=== PATIENT | male | born 1965 | race Caucasian/White ===

== ENCOUNTER 2021-12-30 08:22 | Emergency (ER) | payer OTHER, SELFPAY ==
--- NOTE | ~2021-12-30 | XR_ITS ---
EXAMINATION: XR chest 2V DATE: 12/30/2021 10:23 INDICATION: Shortness of breath. TECHNIQUE: Frontal and lateral views of the chest were obtained on 3 radiographs. COMPARISON: Chest CT 04/15/2018 FINDINGS: The chest demonstrates clear lungs without pneumonia, pleural effusion, or pneumothorax. Th e heart size is normal. IMPRESSION: 1. No acute cardiopulmonary disease. Reviewed, dictated and finalized at location A.
--- NOTE | ~2021-12-30 | CT_ITS ---
EXAMINATION: CT brain wo con DATE: 12/30/2021 10:32 INDICATION: Headache. TECHNIQUE: Computed tomography (CT) of the head was performed without intravenous contrast. The mA wa s adjusted according to patient size. Iterative reconstruction technique was employed. The dose-lengt h product was 681.00 mGy-cm. COMPARISON: Head CT 04/15/2018 FINDINGS: There are scattered areas of low attenuation in the cerebral white matter. There is no intr acranial hemorrhage, acute infarction, or abnormal intracranial mass lesion. The ventricles are medardo l in size. There is mild mucosal thickening in the paranasal sinuses. The mastoid air cells are medardo l. The orbits are normal. IMPRESSION: 1. Stable mild nonspecific cerebral white matter disease, which likely represents chronic small vesse l ischemic disease. Reviewed, dictated and finalized at location A. IMPRESSION: 1. Stable mild nonspecific cerebral white matter disease, which likely represen ts chronic small vessel ischemic disease.
[2021-12-30 08:40] VITALS: BP 175/105; PULSE 84; RESP 18; TEMP 36.5; O2SAT 94
[2021-12-30 08:47] LABS: Glucose Point of Care 92 mg/dl (65-105)
--- NOTE | 2021-12-30 09:14 | ECG_ITS ---
Measurements Intervals [place] Rate: 46 P: CA: 0 QRS: -21 QRSD: 116 T: 24 QT: 442 QTc: 387 Interpretive Statements SINUS BRADYCARDIA AND JUNCTIONAL BRADYCARDIA POOR R-WAVE PROGRESSION INTRAVENTRICULAR CONDUCTION DELAY NO PREVIOUS ECG AVAILABLE FOR COMPARISON Electronically Signed On 12-30-2021 21:02:06 CDT by Simin Villarreal M.D.
--- NOTE | 2021-12-30 09:22 | ED.GENADULT ---
HPI - General Adult General Chief complaint: Unspecified Stated complaint: HIGH BLOOD PRESSURE/HEADACHE/SOB Time Seen by Provider: 12/30/21 09:22 Source: patient History of Present Illness HPI narrative: this is a 56-year-old gentleman that presents with some elevated blood pressure initially 175/111 with headache blurry vision patient states this started early this morning called his primary care physician and was told to go the nearest emergency department. Patient had earlier some chest tightness and some shortness of breath along with his elevated blood pressure with headache that he rates about a 6/10 with blurry vision, there is no nausea or vomiting no fever chills no abdominal pain no flank pain no dysuria or hematuria. current heart rate is 78 the patient feels better all labs CT scan chest x-ray reviewed with patient. Onset (ago): hour(s) Severity: moderate Severity scale (1-10): 6 Pain Consistency: constant Associated symptoms: headaches Related Data Home Medications Medication Instructions Recorded Confirmed ibuprofen 600 mg PO DAILY 12/30/21 12/30/21 lisinopril 20 mg PO DAILY 12/30/21 12/30/21 Allergies Allergy/AdvReac Type Severity Reaction Status Date / Time codeine Allergy Intermediate UNKNOWN Verified 12/30/21 09:02 Penicillins Allergy Intermediate HIVES Verified 12/30/21 09:02 Review of Systems Review of Systems: All systems reviewed & are unremarkable except as noted in HPI and below [facility] Past Medical History Medical History HTN (hypertension) Exam Const: General: cooperative, healthy appearing, comfortable, no acute distress, well developed, alert, awake and Physically active HENMT: Head: normal to inspection Ears: hearing grossly normal bilaterally General nose exam: Normal external nose present Face and sinus: normal facial exam Mouth: Yes Normal oral and palatal mucosa present Throat: posterior oropharynx normal Eyes: General: appearance normal, both eyes and all related structures Eyelids: eyelids normal Conjunctivae: conjunctivae normal Sclera: sclerae normal Pupils: Equal, round and reactive pupils present Neck: Neck: normal visual inspection, full ROM, no lymphadenopathy and no meningeal signs Chest: Chest palpation & inspection: normal inspection of the chest and normal palpation of entire chest wall Resp: Effort & Inspection: normal respiratory effort and able to speak in complete sentences Auscultation: clear to auscultation bilaterally Cardio: Jugular venous distension: no JVD Palpation: normal PMI Rate: regular rate Rhythm: regular rhythm Heart sounds: S1 normal heart sound present and S2 normal heart sound present GI: Inspection: normal to inspection : General: Yes bimanual renal exam normal bilaterally Back/Spine/Pelvis: Back: no CVA tenderness Cervical Spine: normal cervical lordosis and cervical ROM normal Skin: General skin exam: normal color and no rashes or lesions noted Neuro: General: oriented to person, oriented to place, oriented to time and patient oriented x3 Course Course Emergency Course: CT scan of the brain as well as chest x-ray performed and reviewed with patient, EKG performed and reviewed patient, Received 30mg IV Toradol labs reviewed with patient reassessment of headache has improved on reassessment blush blood pressure is improved as well. patient had a vasovagal response after lab tried to draw blood apparently the patient gets extremely anxious needles, EKG that was performed showed that his heart rate went from 84 down to 46 and blood pressure down to 129/89. Patient became diaphoretic and O2 sats dropped about 91 to 92 and was started on 2L of oxygen. Vital Signs Vital signs: Vital Signs Temperature 36.5 C 12/30/21 08:40 Pulse Rate 84 12/30/21 08:40 Respiratory Rate 18 12/30/21 08:40 Blood Pressure 175/105 H 12/30/21 08:40 Pulse Oximetry 94 12/30/21 08:40
[2021-12-30 09:36] LABS: Basophils Absolute Auto 0.03 K/mm3 (0.00-0.10); Basophils Percent Auto 0.3 % (0.0-1.0); Eosinophils Absolute Auto 0.15 K/mm3 (0.02-0.50); Eosinophils Percent Auto 1.7 % (1.0-6.0); Hematocrit 45.3 % (40.0-54.0); Hemoglobin 15.1 g/dL (14.0-18.0); Immature Granulocyte Absolute 0.05 K/mm3 (0.00-0.00); Immature Granulocyte Percent A 0.6 % (0.0-0.0); Lymphocytes Absolute Auto 1.86 K/mm3 (1.10-4.50); Lymphocytes Percent Auto 21.5 % (18.0-42.0); Mean Corpuscular HGB Conc 33.3 g/dL (32.0-36.0); Mean Corpuscular Hemoglobin 31.5 pg (27.0-31.0); Mean Corpuscular Volume 94.4 fL (78.0-102.0); Mean Platelet Volume 11.1 fl (8.7-11.0); Monocytes Absolute Auto 0.56 K/mm3 (0.10-0.90); Monocytes Percent Auto 6.5 % (2.0-11.0); Neutrophils Percent Auto 69.4 % (50.0-70.0); Platelet Count Result 175 K/mm3 (150-420); Red Cell Distribution Width 12.3 % (11.6-14.4); White Blood Count 8.7 K/mm3 (4.8-10.8)
--- NOTE | 2021-12-30 09:37 | PC.NURSE ---
Attempted to start IV x 2 without success. ZABRINA Figueroa aware and will attempt IV insertion.
[2021-12-30 09:53] LABS: Partial Thromboplastin Time 27.2 SEC (23.90-30.70); Prothrombin Time 10.7 Seconds (9.50-12.10)
[2021-12-30] MEDS: KETOROLAC 30 MG/ML VIAL (*BKC) IV PUSH (09:55)
--- NOTE | 2021-12-30 10:00 | PC.NURSE ---
at [id number] pt became very pale and sl diaphoretic with c/o nausea. this occurred during the IV attempts and the lab draws. cool compress applied to forehead, pt placed in Trendelenburg, emesis bag provided. dry heaves noted.
[2021-12-30 10:06] LABS: Alanine Aminotransferase 22 U/L (16-63); Albumin Level 3.5 g/dL (3.4-5.0); Alkaline Phosphatase 47 U/L (46-116); Anion Gap 6 mmol/L (8-16); Aspartate Amino Transferase 18 U/L (15-37); Bilirubin,Total 0.4 mg/dL (0.00-1.00); Blood Urea Nitrogen 18 mg/dL (7-18); Calcium 8.5 mg/dL (8.5-10.1); Carbon Dioxide 31 mmol/L (21-32); Chloride 104 mmol/L (98-108); Estimated CRCL calculation 115 ml/min; Estimated Glomerular Filt Rate > 60; Glucose 107 mg/dL (70-99); NT Pro B Type Natriuretic Pept 128 pg/mL (0-125); Osmolality Calculated 293 mOsm/kg (285-295); Potassium 4.5 mmol/L (3.5-5.1); Sodium 141 mmol/L (136-145); Total Protein 6.5 g/dL (6.4-8.2); Troponin I 9.4 ng/L (0.00-60.4)
[2021-12-30 10:48] VITALS: BP 143/102; PULSE 79; RESP 16; TEMP 36.7; O2SAT 95
== END 2021-12-30 10:50 | disposition home or self-care (01) ==
PROVIDERS: Emergency Provider Emergency Medicine
DX: I10 Essential (primary) hypertension (principal)
CPT/HCPCS: 36415; 70450; 71046; 80053; 82948; 83880; 84484; 85025; 85610; 85730; 93005; 96374; 99284; J1885

== ENCOUNTER 2022-10-27 19:55 | Emergency (ER) | payer OTHER, SELFPAY ==
[2022-10-27] VITALS (14 sets, daily range): BP systolic 117–149; BP diastolic 62–90; PULSE 91–115; RESP 20; TEMP 37.9; O2SAT 85–96
--- NOTE | ~2022-10-27 | CT_ITS ---
EXAMINATION: CT abdomen pelvis w con DATE: 10/27/2022 21:22 INDICATION: Generalized abdominal pain. Nausea, vomiting, and diarrhea. TECHNIQUE: Computed tomography (CT) of the abdomen and pelvis was performed with 100 mL Omnipaque 350 intravenous contrast. Automated exposure control and iterative reconstruction technique were employe d. The dose-length product was 1518.64 mGy-cm. COMPARISON: CT abdomen and pelvis 04/15/2018 FINDINGS: The visualized portions of the lung bases demonstrate mild atelectasis. No pleural effusion . The heart size is normal. There are coronary artery calcifications. No pericardial effusion. There is a small sliding hiatal hernia. The liver, gallbladder, spleen, pancreas, and adrenal glands are no rmal. There are cysts in the kidneys measuring up to 19 mm on the left. There are 2 mm and 1 mm stone s in right kidney. The prostate is mildly enlarged. There is diverticulosis of the colon without evid ence of diverticulitis. The appendix is normal. There are dilated loops of small bowel without focal transition point. There is an umbilical hernia containing fat. There are no pathologically enlarged l ymph nodes. There is no free intraperitoneal fluid. There is severe lumbar spondylosis. There are a f ew scattered benign bone islands. IMPRESSION: 1. Small sliding hiatal hernia. 2. Dilated small bowel without focal transition point, consistent with adynamic ileus. 3. Umbilical hernia containing fat. Reviewed, dictated and finalized at location A. TECHNOLOGIST
[2022-10-27 20:33] LABS: Basophils Absolute Auto 0.02 K/mm3 (0.00-0.10); Basophils Percent Auto 0.1 % (0.0-1.0); Eosinophils Absolute Auto 0.01 K/mm3 (0.02-0.50); Eosinophils Percent Auto 0.1 % (1.0-6.0); Hematocrit 51.3 % (40.0-54.0); Hemoglobin 17.2 g/dL (14.0-18.0); Immature Granulocyte Absolute 0.06 K/mm3 (0.00-0.00); Immature Granulocyte Percent A 0.4 % (0.0-0.0); Mean Corpuscular HGB Conc 33.5 g/dL (32.0-36.0); Mean Corpuscular Hemoglobin 31.6 pg (27.0-31.0); Mean Corpuscular Volume 94.3 fL (78.0-102.0); Mean Platelet Volume 11.4 fl (8.7-11.0); Monocytes Absolute Auto 0.66 K/mm3 (0.10-0.90); Monocytes Percent Auto 4.9 % (2.0-11.0); Neutrophils Absolute Auto 12.3 K/mm3 (1.7-7.2); Neutrophils Percent Auto 91.5 % (50.0-70.0); Platelet Count Result 174 K/mm3 (150-420); Red Blood Count 5.44 M/mm3 (4.70-6.10); Red Cell Distribution Width 12.8 % (11.6-14.4); White Blood Count 13.5 K/mm3 (4.8-10.8)
[2022-10-27] MEDS: SODIUM CHLORIDE 0.9% IV 1,000 ML 999 ML IV CONT ×2 (20:34→20:35)
[2022-10-27] MEDS: ONDANSETRON INJ 4 MG/2 ML VIAL IV PUSH ×2 (20:34→23:12)
[2022-10-27] MEDS: KETOROLAC 30 MG/ML VIAL (*BKC) IV PUSH (20:42)
[2022-10-27 20:47] LABS: Partial Thromboplastin Time 26.5 SEC (23.90-30.70); Prothrombin Time 11.4 Seconds (9.50-12.10)
[2022-10-27 20:48] LABS: Alanine Aminotransferase 14 U/L (16-63); Albumin Level 3.6 g/dL (3.4-5.0); Alkaline Phosphatase 55 U/L (46-116); Anion Gap 10 mmol/L (8-16); Aspartate Amino Transferase 12 U/L (15-37); Bilirubin,Total 0.5 mg/dL (0.00-1.00); Blood Urea Nitrogen 20 mg/dL (7-18); Calcium 8.8 mg/dL (8.5-10.1); Carbon Dioxide 26 mmol/L (21-32); Chloride 106 mmol/L (98-108); Estimated CRCL calculation 94 ml/min; Estimated Glomerular Filt Rate > 60; Glucose 137 mg/dL (70-99); Lipase 24 U/L (16-77); Osmolality Calculated 298 mOsm/kg (285-295); Potassium 3.8 mmol/L (3.5-5.1); Sodium 142 mmol/L (136-145); Total Protein 7.2 g/dL (6.4-8.2)
[2022-10-27 20:53] LABS: Lactic Acid Reflex 1.9 mmol/L (0.4-2.0)
[2022-10-27 20:59] LABS: Influenza A QL RT-PCR Negative (Negative); Influenza B QL RT-PCR Negative (Negative); RSV RNA, RT-PCR Negative (Negative); SARS-CoV-2 RNA PCR Negative (Negative)
[2022-10-27] MEDS: MORPHINE SULFATE (*CRX) 4 MG/ML INJ IV PUSH (21:20)
--- NOTE | 2022-10-27 21:56 | ED.NAVMDI ---
HPI - Nausea/Vomiting/Diarrhea General Chief complaint: Nausea/Vomiting/Diarrhea Stated complaint: vomiting and diarrhea Source: patient Mode of arrival: ambulatory Limitations: no limitations History of Present Illness HPI Narrative: this is a 57-year-old gentleman that presents with a severe abdominal pain he rates about a 10/10 with nausea and vomiting episodes of diarrhea with temperature of 99.9 patient symptoms started about 6 in the morning and have progressively worsened, with a history of abdominal hernia repair history of diverticulitis. Patient denies any chest pain or shortness of breath no flank pain no dysuria no hematuria. History of umbilical hernia repair. MD elicited complaint: nausea, vomiting and abdominal pain Onset (ago): hour(s) Description of vomiting: watery Associated nausea: Yes Associated abdominal pain: Yes Radiation: diffuse Related Data Home Medications Medication Instructions Recorded Confirmed ibuprofen 600 mg tablet 600 mg PO DAILY 12/30/21 10/28/22 lisinopril 20 mg tablet 20 mg PO DAILY 12/30/21 10/28/22 amlodipine 5 mg tablet 5 mg PO DAILY 10/27/22 10/28/22 diazepam 5 mg tablet 5 mg PO DAILY 10/27/22 10/28/22 Allergies Allergy/AdvReac Type Severity Reaction Status Date / Time Penicillins Allergy Intermediate HIVES Verified 12/30/21 09:02 Review of Systems Review of Systems: All systems reviewed & are unremarkable except as noted in HPI and below PMFSH Past Medical History Medical History HTN (hypertension) Exam Const: General: healthy appearing Nutritional Appearance: well nourished Orientation/consciousness: patient oriented x3 HENMT: Head: normal to inspection Face/Nose/Sinus: Normal external nose present Face and sinus: normal facial exam Eyes: Conjunctivae: conjunctivae normal Pupils: Equal, round and reactive pupils present EOM: EOMs intact bilaterally Neck: Neck: normal visual inspection Chest: Chest palpation & inspection: normal inspection of the chest Resp: Effort & Inspection: normal respiratory effort Cardio: Rate: regular rate Rhythm: regular rhythm GI: GI Palp: Yes Soft to palpation, Yes Tenderness to palpation present (GI) and Yes Guarding due to palpation present (GI) Auscultation: Hypoactive bowel sounds present : General: Yes bladder normal to palpation Urinary Catheter: Urinary Catheter: patent and draining Back/Spine/Pelvis: Back: no CVA tenderness Skin: General skin exam: normal color Rashes: no rashes Wounds: no wounds Neuro: General: patient oriented x3 Cranial nerves: Yes Nystagmus not present Speech: normal speech Extrem: General: normal to inspection Psych: Mental Status: mental status grossly normal Affect: normal affect Course Course Emergency Course: Patient with abdominal pain CT scan of the abdomen was performed which shows that he has dilated small bowel consistent with adynamic ileus without a transition point, patient's symptoms have improved with Zofran and morphine, labs reviewed with patient does have a white count of 13.5 with a lactic acid of 1.9. Patient accepted for transfer by hospitalist at [place]. Vital Signs Vital signs: Vital Signs Temperature 37.9 C H 10/27/22 20:08 Pulse Rate 115 H 10/27/22 20:08 Respiratory Rate 20 10/27/22 20:08 Blood Pressure 149/90 H 10/27/22 20:08 Pulse Oximetry 92 10/27/22 20:08 Oxygen Delivery Room Air 10/27/22 20:08 Temperature 37.9 C H 10/27/22 20:08 Pulse Rate 91 10/27/22 20:46 Respiratory Rate 20 10/27/22 20:08 Blood Pressure 117/62 10/27/22 20:46 Pulse Oximetry 85 L 10/27/22 23:00 Oxygen Delivery Room Air 10/27/22 20:08 MDM - Nausea/Vomiting/Diarrhea Lab Data 10/27/22 20:32 10/27/22 20:32 Labs: Lab Results 10/27/22 10/27/22 10/27/22 Range/Units 20:21 20:32 20:32 WBC 13.5 H (4.8-10.8) K/mm3 RBC 5.44 (4.70-6.10)
[2022-10-27] MEDS: HYDROmorphone HCL INJ (*CRX) 2 MG/ML VIAL 0.5 MG IV PUSH (23:08)
[2022-10-28 01:11] VITALS: BP 141/84; PULSE 99; RESP 20; TEMP 37.5; O2SAT 100
== END 2022-10-28 01:15 | disposition home or self-care (01) ==
PROVIDERS: Emergency Provider Emergency Medicine; PCP Family Medicine
DX: K56.0 Paralytic ileus (principal); I10 Essential (primary) hypertension; Z20.822 Contact with and (suspected) exposure to COVID-19
CPT/HCPCS: 36415; 74177; 80053; 83605; 83690; 85025; 85610; 85730; 87637; 96361; 96374; 96375; 96376; 99284; J1170; J1885; J2270; J2405; J7030; Q9967

== ENCOUNTER 2022-10-28 01:50 | Inpatient (IN) | payer OTHER, SELFPAY ==
--- NOTE | ~2022-10-28 | XR_ITS ---
Supine views of the abdomen Clinical history: Ileus Findings: Bowel gas pattern is nonspecific. No evidence for obstruction or free air. No abnormal mass lesion or calcification is seen. Osseous structures are intact. Impression: No significant abnormality is seen. Reviewed, dictated and finalized at [facility]. E SHOP ATTENDANT Impression: No significant abnormality is seen.
[2022-10-28 02:00] VITALS: BP 120/60; PULSE 84; RESP 16; TEMP 36.4; O2SAT 97
--- NOTE | 2022-10-28 02:25 | ECG_ITS ---
Measurements Intervals [place] Rate: 74 P: 47 NC: 224 QRS: -19 QRSD: 107 T: 11 QT: 389 QTc: 432 Interpretive Statements SINUS RHYTHM WITH FIRST DEGREE AV BLOCK ABNORMAL ECG COMPARED TO ECG 12/30/2021 09:43:46 SINUS RHYTHM NOW PRESENT HEART RATE IS INCREASED Electronically Signed On 10-28-2022 15:28:23 EIGHT ARM OPERATOR by Hemant Hayden M.D.
[2022-10-28 02:27] VITALS: BP 120/60; PULSE 84; RESP 16; TEMP 36.4; O2SAT 97
--- NOTE | 2022-10-28 02:38 | ADMGEN ---
This patient, Chris Brito, was admitted to [facility] Surg Room 306-01. Patient/family oriented to hospital policies and general routines including ID bracelet, bed and alarms, visiting hours, pain management, procedures, bathroom and other care routines, personal items, smoking policy, room service/diet, and visiting hours. Information on how to activate the Rapid Response Team has been discussed. Patient/Family are encouraged to report perceived risks to care and to ask questions if they do not understand what they are told or what they should do.
[2022-10-28] MEDS: DEXTROSE 5%/0.45% SOD CHL 1,000 ML 100 ML IV CONT ×3 (02:59→22:31)
[2022-10-28] MEDS: MORPHINE SULFATE (*CRX) 2 MG/ML INJ IV PUSH ×3 (03:00→12:39)
[2022-10-28] MEDS: ONDANSETRON INJ 4 MG/2 ML VIAL IV PUSH ×4 (03:08→20:26)
[2022-10-28 03:20] VITALS: BMI 42.0
[2022-10-28 04:08] LABS: Basophils Percent Auto 0.2 % (0.2-1.2); Eosinophils Percent Auto 0.1 % (0-4.4); Hematocrit 46.1 % (42.0-52.0); Hemoglobin 15.5 g/dL (14.0-18.0); Immature Granulocyte Absolute 0.03 K/mm3 (0.00-0.031); Immature Granulocyte Percent A 0.4 % (0-0.5); Lymphocytes Absolute Auto 0.61 K/mm3 (0.9-3.2); Lymphocytes Percent Auto 7.2 % (18.3-44.2); Mean Corpuscular HGB Conc 33.6 g/dl (32-36); Mean Corpuscular Hemoglobin 31.8 pg (26-34); Mean Corpuscular Volume 94.7 fl (80-100); Mean Platelet Volume 10.8 fl (7.4-10.4); Monocytes Absolute Auto 0.6 K/mm3 (0.1-0.6); Monocytes Percent Auto 6.7 % (2.6-8.5); Neutrophils Absolute Auto 7.3 K/mm3 (1.3-6.7); Neutrophils Percent Auto 85.4 % (45.5-73.1); Platelet Count Result 150 k/mm3 (150-375); Red Blood Count 4.87 M/mm3 (4.6-6.20); Red Cell Distribution Width 13.2 % (11.5-14.5); White Blood Count 8.5 K/mm3 (4.5-10.0)
[2022-10-28 04:17] LABS: INR 1.1; Prothrombin Time 14.2 Seconds (11.1-14.7)
[2022-10-28 04:18] LABS: Partial Thromboplastin Time 30.7 SECONDS (22.3-36.8)
[2022-10-28 04:24] LABS: Alanine Aminotransferase 15 U/L (6-50); Albumin Level 3.7 g/dL (3.5-5.1); Alkaline Phosphatase 41 U/L (38-126); Anion Gap 4 mmol/L (8-16); Aspartate Amino Transferase 19 U/L (17-59); Bilirubin,Total 0.6 mg/dL (0.2-1.3); Blood Urea Nitrogen 20 mg/dL (9-20); Calcium 7.7 mg/dL (8.4-10.2); Carbon Dioxide 28 mmol/L (22-30); Chloride 105 mmol/L (98-107); Estimated CRCL calculation 99 ml/min; Estimated Glomerular Filt Rate > 60; Glucose 123 mg/dL (65-110); Magnesium 1.7 mg/dL (1.6-2.3); Phosphorus 3.8 mg/dL (2.5-4.5); Potassium 3.7 mmol/L (3.4-5.0); Sodium 137 mmol/L (137-145)
[2022-10-28 06:00] VITALS: BP 101/66; PULSE 77; RESP 16; TEMP 36.6; O2SAT 92
[2022-10-28 06:50] LABS: Appearance Urine Clear (Clear); Bilirubin Urine Negative (Negative); Blood Urine Negative (Negative); Color Urine Yellow (Yellow); Glucose Urine UA Negative (Negative); Ketones Urine Negative (Negative); Leukocyte Esterase Ur Negative LEU/UL (Negative); Nitrate Urine Negative (Negative); Protein Urine Trace mg/dL (Negative); Specific Grav Ur 1.025 (1.001-1.035); Urobilinogen Urine 0.2 mg/dL (<2.0); pH Urine 5.5 (5.0-9.0)
[2022-10-28 06:56] LABS: Add Urine Microscopic? YES; Bacteria Urine Trace /hpf; Mucus Urine Few /lpf; RBC Urine 0-2 /hpf (0-2); Squamous Epithelial Cell Urine Rare /hpf (Few); WBC Urine 0-3 /hpf
[2022-10-28] MEDS: HYDROmorphone HCL INJ (*CRX) 1 MG/ML SYR IV PUSH ×3 (08:24→20:28)
--- NOTE | 2022-10-28 08:45 | PM.IMHP ---
H&P: HPI History of Present Illness Date/Time: 10/28/22 8192 Chief Complaint: Abdominal pain, diarrhea, vomiting Narrative: Patient is a 57-year-old male with a past medical history of anxiety, hypertension, Campylobacter infection, diverticulitis, prostate cancer who presented to the ED with complaints of abdominal pain, nausea, vomiting, diarrhea. Patient stated that he woke up 630 yesterday morning and was feeling fine had a BM. Sat down and this has been everything started. Patient stated that he was having diarrhea about every 15 minutes to half an hour. The diarrhea than subsided and he started vomiting and dry heaving. Patient stated that he would try to keep hydrated however we time he would take something to drink a which is come right back up. He is also experiencing abdominal pain. Patient stated that his pain is generalized and radiates to his back. He currently rates his pain an 8/10. Patient stated that the pain is back is CVA tenderness that goes to the top of his gluteus lesley. He stated that he has had diverticulitis in the past and he stated this felt similar. His last meal was beef sticks with salami, cheese, crackers and 7 hernández tomatoes. At 1st patient thought he had food poisoning. Patient denies any chest pain, lightheadedness, dizziness, urinary dysfunction. Patient also denies any melena, coffee-ground emesis. Patient did state that when he was vomiting was clear yellow coming up. He stated that his vomiting has been better since he did get Zofran. CT of the abdomen pelvis did show dilated small bowels without focal transition point consistent with adynamic ileus. Personal review of the CT scan did show some pretty significant amount of stool within the colon. White blood cell count is stable at 8.5. Patient is eating ice chips and is able to tolerate ice chips without any nausea or vomiting. Patient does report having a bowel movement this morning however he stated was mostly liquid. KUB this morning did not show any significant abnormality. Patient does seem to be very anxious as he does have a lot going on with his prostate. Patient is scheduled to see Oncology today however has been following up with Urology frequently. Patient is being admitted to the hospitalist service for observation PMFSH Past Medical History Medical History Campylobacter enteritis Diverticulitis HTN (hypertension) Prostate cancer Surgical History Surgical History History of arthroplasty of both shoulders S/P hernia repair Family History Family History Mother Cancer of breast, female Cerebrovascular accident Father Prostate carcinoma Sibling Prostate carcinoma Brain aneurysm Social History Social History Social History: patient is x2 and lives by himself. Patient has 3 kids and 3 step kids that her fully grown. He denies having any pets. Patient elects his sons Juan in [place] to be his surrogate. Patient wishes to be a full code at this time. 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
[2022-10-28] MEDS: MAGNESIUM SULF 4 GM/WATER100ML 4 GM/100 ML BAG IVPB (09:48)
[2022-10-28] MEDS: BISACODYL 10 MG SUPPOSITORY RECTAL (10:12)
[2022-10-28 14:00] VITALS: BP 107/61; PULSE 69; RESP 18; TEMP 36.3; O2SAT 93
--- NOTE | 2022-10-28 18:39 | PM.CNGS ---
Assessment and Plan Assessment and plan (1) Diarrhea: Code(s): R19.7 - Diarrhea, unspecified Status: Acute Assessment and Plan: Improved. I think the patient did have some type of food poisoning. No other possibility would be enterocolitis. He does not have an adynamic ileus despite what the CT scan says. He has improved without antibiotics. This could be food poisoning or a viral illness. I will go ahead order stool cultures. I will follow along with you but no plans for surgery. (2) Nausea and vomiting: Code(s): R11.2 - Nausea with vomiting, unspecified Status: Acute Assessment and Plan: See above-improved after Zofran. None today. (3) Lower abdominal pain: Code(s): R10.30 - Lower abdominal pain, unspecified Status: Acute Assessment and Plan: Also low back pain. Better than when he came in the hospital but still a problem. Pain is not severe but more of a soreness. (4) Umbilical hernia without mention of obstruction or gangrene: Code(s): K42.9 - Umbilical hernia without obstruction or gangrene Status: Acute Assessment and Plan: Asymptomatic. Patient has morbid obesity, would not recommend repair unless he lost significant amounts of weight or this became symptomatic. History of Present Illness Consult details Consult date: 10/28/22 Reason for consult: abdominal pain Requesting physician: Dustin Mauricio MD Narrative: Patient is a 48-year-old man who awakened yesterday morning and was doing well. He had a normal bowel movement and then within just a few minutes following that, he began having diarrhea. The diarrhea was significant with multiple episodes of diarrhea. Not long after the diarrhea started he had multiple episodes of vomiting. He thought maybe he had food poisoning. He tried a home remedy but could keep that down. He really could not keep anything down. After vomiting and having diarrhea for quite a while. He also started having diffuse abdominal pain. He came to the emergency room at [place]. He had a CT scan and was told he may have a blockage. He was transferred to [facility] and we were consulted for adynamic ileus early this morning. I reviewed the CT scan and it does show some dilated small bowel with fluid in it. He has an umbilical hernia. He has extensive diverticulosis. There is no evidence of either large or small bowel obstruction. The patient's diarrhea has improved significantly but he is still had about 5 liquid stools during the day today. He still has abdominal pain and back pain in the lower back. His abdominal pain is in the lower abdomen in a band across the suprapubic area including both lower quadrants. He received some Zofran and has not had any nausea or vomiting since then. He actually would like to eat. His white blood cell count was elevated at 13,500 initially but repeat today is only 8500. Fifteen years ago, he drank water from the spring and was told he had Campylobacter. He had symptoms just like his recent symptoms. He also has a history of diverticulitis which required hospitalization about 4 years ago but has not had diverticulitis since then. He is seen now in consultation regarding his abnormal CT scan. He also has prostate cancer and is seeing Urology as well as Medical Oncology for treatment. Review of Systems Review of Systems: All systems reviewed & are unremarkable except as noted in HPI and below (HPI and those items noted below) Constitutional: Constitutional: Denies chills and Denies fever(s) Cardiovascular: Cardiovascular: Denies chest pain, Denies diaphoresis, Denies dyspnea and Denies paroxysmal nocturnal dyspnea Respiratory: Respiratory: Denies chest congestion, Denies cough and Denies dyspnea Integumentary/Breasts: Skin/Breast: Denies lesions and Denies rash PMFSH Past Medical History Medical History Campylobacter
[2022-10-28 20:00] VITALS: PULSE 69; RESP 18; O2SAT 93
[2022-10-28 22:00] VITALS: BP 102/73; PULSE 66; RESP 19; TEMP 36.3; O2SAT 96
[2022-10-28 22:01] LABS: Toxigenic C. Diff NEGATIVE (NEGATIVE)
[2022-10-29] MEDS: HYDROmorphone HCL INJ (*CRX) 1 MG/ML SYR IV PUSH ×5 (00:58→20:14)
[2022-10-29 06:00] VITALS: BP 122/76; PULSE 77; RESP 18; TEMP 36.3; O2SAT 96
[2022-10-29 06:35] LABS: Basophils Percent Auto 0.2 % (0.2-1.2); Eosinophils Absolute Auto 0.2 K/mm3 (0-0.3); Eosinophils Percent Auto 2.7 % (0-4.4); Hematocrit 42.4 % (42.0-52.0); Hemoglobin 14.2 g/dL (14.0-18.0); Immature Granulocyte Absolute 0.01 K/mm3 (0.00-0.031); Immature Granulocyte Percent A 0.2 % (0-0.5); Lymphocytes Absolute Auto 1.33 K/mm3 (0.9-3.2); Lymphocytes Percent Auto 22.3 % (18.3-44.2); Mean Corpuscular HGB Conc 33.5 g/dl (32-36); Mean Corpuscular Hemoglobin 32.2 pg (26-34); Mean Corpuscular Volume 96.1 fl (80-100); Mean Platelet Volume 10.9 fl (7.4-10.4); Monocytes Absolute Auto 0.7 K/mm3 (0.1-0.6); Monocytes Percent Auto 12.1 % (2.6-8.5); Neutrophils Absolute Auto 3.7 K/mm3 (1.3-6.7); Neutrophils Percent Auto 62.5 % (45.5-73.1); Platelet Count Result 142 k/mm3 (150-375); Red Blood Count 4.41 M/mm3 (4.6-6.20); Red Cell Distribution Width 13.2 % (11.5-14.5)
[2022-10-29 06:46] LABS: Alanine Aminotransferase 14 U/L (6-50); Albumin Level 3.5 g/dL (3.5-5.1); Alkaline Phosphatase 39 U/L (38-126); Anion Gap 1 mmol/L (8-16); Aspartate Amino Transferase 19 U/L (17-59); Bilirubin,Total 0.5 mg/dL (0.2-1.3); Blood Urea Nitrogen 13 mg/dL (9-20); Calcium 7.5 mg/dL (8.4-10.2); Carbon Dioxide 32 mmol/L (22-30); Chloride 103 mmol/L (98-107); Estimated CRCL calculation 99 ml/min; Estimated Glomerular Filt Rate > 60; Glucose 107 mg/dL (65-110); Magnesium 2.2 mg/dL (1.6-2.3); Potassium 3.5 mmol/L (3.4-5.0); Sodium 136 mmol/L (137-145)
[2022-10-29] MEDS: DEXTROSE 5%/0.45% SOD CHL 1,000 ML 100 ML IV CONT (08:29)
[2022-10-29] MEDS: ONDANSETRON INJ 4 MG/2 ML VIAL IV PUSH ×2 (08:31→15:59)
--- NOTE | 2022-10-29 10:30 | PM.IMPN ---
Progress Note: A&P Assessment and Plan (1) Nausea and vomiting: Code(s): R11.2 - Nausea with vomiting, unspecified Status: Acute Assessment and Plan: CT of the abdomen does indicate ileus, GS does not fell this is the case KUB does not show any significant abnormality General surgery consulted Full liquids, advance as tolerated Pain medications on board (2) Diarrhea: Code(s): R19.7 - Diarrhea, unspecified Status: Acute Assessment and Plan: See above could be related to food poisoning or colitis Stool culture pending Continue current treatment (3) Lower abdominal pain: Code(s): R10.30 - Lower abdominal pain, unspecified Status: Acute Assessment and Plan: See above (4) Prostate cancer: Code(s): C61 - Malignant neoplasm of prostate Status: Acute Assessment and Plan: Known elevated PSH, cancer with lymph node involvement Sees a urologist and oncologist at [place] Continue outpatient follow up (5) HTN (hypertension): Qualifiers: Hypertension type: primary hypertension Qualified Code(s): I10 - Essential (primary) hypertension Code(s): I10 - Essential (primary) hypertension Status: Acute Assessment and Plan: Current BP is 122/76 Hold lisinopril and amlodipine for now Trend BP Adjust therapy as indicated (6) Umbilical hernia without mention of obstruction or gangrene: Code(s): K42.9 - Umbilical hernia without obstruction or gangrene Status: Acute Assessment and Plan: Stable and chronic History of repair in the past No acute problems or issues Time Spent With Patient Time: 48 minutes Time with patient: Greater than 35 minutes Subjective Date/time seen: 10/29/22 1030 Interval history: 10/29/22 1030 Patient is still having some is considerable pain. Currently rates his pain 8/10. Talked to patient about starting oral medications for pain. He denies any chest pain, shortness a breath, weakness or fatigue. He still stated that he is having some nausea however has been controlled with Zofran. Labs appear stable today. Will continue with full liquids for now. 10/28/22? 0845 Patient is a 57-year-old male with a past medical history of anxiety, hypertension, Campylobacter infection, diverticulitis, prostate cancer who presented to the ED with complaints of abdominal pain, nausea, vomiting, diarrhea.? Patient stated that he woke up 630 yesterday morning and was feeling fine had a BM.? Sat down and this has been everything started.? Patient stated that he was having diarrhea about every 15 minutes to half an hour.? The diarrhea than subsided and he started vomiting and dry heaving.? Patient stated that he would try to keep hydrated however we time he would take something to drink a which is come right back up.? He is also experiencing abdominal pain.? Patient stated that his pain is generalized and radiates to his back.? He currently rates his pain an 04/13.? Patient stated that the pain is back is CVA tenderness that goes to the top of his gluteus lesley.? He stated that he has had diverticulitis in the past and he stated this felt similar.? His last meal was beef sticks with salami, cheese, crackers and 7 hernández tomatoes.? At 1st patient thought he had food poisoning.? Patient denies any chest pain, lightheadedness, dizziness, urinary dysfunction.? Patient also denies any melena, coffee-ground emesis.? Patient did state that when he was vomiting was clear yellow coming up.? He stated that his vomiting has been better since he did get Zofran.? CT of the abdomen pelvis did show dilated small bowels without focal transition point consistent with adynamic ileus.? Personal review of the CT scan did show some pretty significant amount of stool within the colon.? White blood cell count is stable at 8.5.? Patient is eati
[2022-10-29] MEDS: HYDROcodone/acetaminophen (*CRX) 5-325 MG TABLET 1 TAB PO (13:00)
[2022-10-29 14:00] VITALS: BP 131/82; PULSE 73; RESP 18; TEMP 36.4; O2SAT 95
--- NOTE | 2022-10-29 14:56 | PM.PNGS ---
Progress Note: A&P Assessment and Plan (1) Lower abdominal pain: Code(s): R10.30 - Lower abdominal pain, unspecified Status: Acute Assessment and Plan: Improving. Tolerated full liquids well. Will advance to solid food (2) Diarrhea: Code(s): R19.7 - Diarrhea, unspecified Status: Acute Assessment and Plan: Resolved. No bowel movements since yesterday. (3) Nausea and vomiting: Code(s): R11.2 - Nausea with vomiting, unspecified Status: Acute Assessment and Plan: Resolve now for over 36 hours (4) Prostate cancer: Code(s): C61 - Malignant neoplasm of prostate Status: Chronic Assessment and Plan: No evidence on imaging of this being the cause of his present illness. Will continue outpatient care with Oncology and Urology after discharge. Subjective Subjective Date/Time Seen: 10/29/22 14:56 Patient reports: feels better, pain is less (Still having abdominal and back pain but less than yesterday.), tolerating liquids well and no bowel movement (Diarrhea has stopped) Review of Systems Review of Systems: All systems reviewed & are unremarkable except as noted in HPI and below (HPI) Exam Const: General: comfortable and no acute distress; No confusion Orientation/consciousness: patient oriented x3 and No confusion GI: Inspection: non-distended and obesity GI Palp: Yes Soft to palpation, Yes Tenderness to palpation present (GI) (Less tender than yesterday, lower abdomen), No Guarding due to palpation present (GI) and No Rebound tenderness present Auscultation: normal bowel sounds Neuro: General: patient oriented x3, no focal motor deficits and No confusion Extrem: General: no calf tenderness and no edema Psych: Affect: normal affect Insight: Good insight present (Psych) Judgement: Good judgement present (Psych) Objective Data Vital Signs Vital Signs: Vital Signs - 24 hr 10/28/22 20:00 10/28/22 22:00 10/29/22 06:00 Temperature 36.3 C L 36.3 C L Pulse Rate 69 66 77 Respiratory Rate 18 19 18 Blood Pressure 102/73 122/76 Pulse Oximetry 93 96 96 Oxygen Delivery Room Air 10/29/22 08:30 10/29/22 14:00 Temperature 36.4 C Pulse Rate 73 Respiratory Rate 18 Blood Pressure 131/82 Pulse Oximetry 95 Oxygen Delivery Room Air Intake/Output Intake/Output: Intake & Output 10/26/22 10/27/22 10/28/22 10/29/22 23:59 23:59 23:59 23:59 Intake Total 2240 1236 Output Total 1450 125 Balance 790 1111 Meds/Results Medications: Active Medications Generic Name Dose Route Start Last Admin Trade Name Freq PRN Reason Stop Dose Admin Hydrocodone Bitart/Acetaminophen 1 tab 10/29/22 12:18 10/29/22 13:00 Hydrocodone/Acetaminophen (*Crx) 5-325 Mg Tablet PO 1 tab Q4H PRN Administration Pain Rated 4-6 Hydromorphone HCl 1 mg 10/28/22 16:31 10/29/22 10:34 Hydromorphone Hcl Inj (*Crx) 1 Mg/Ml Syr IV PUSH 1 mg Q4H PRN Administration Pain Rated 7-10 Dextrose/Sodium Chloride 1,000 mls @ 100 mls/hr 10/28/22 02:25 10/29/22 09:30 Dextrose 5% Sodium Chloride 0.45% IV CONT 0 mls/hr .Q10H IRASEMA Infusion Naloxone HCl 0.1 mg 10/28/22 02:22 Naloxone Hcl 0.4 Mg/Ml Vial IV PUSH Q2M PRN Opiate Reversal Ondansetron HCl 4 mg 10/28/22 02:22 10/29/22 08:31 Ondansetron Inj 4 Mg/2 Ml Vial IV PUSH 4 mg Q6H PRN Administration Nausea And Vomiting Radiology Results: ITS Impressions Abdomen X-Ray 10/28/22 06:40 Impression: No significant abnormality is seen. Labs Labs: Laboratory Results - last 24 hr 10/28/22 10/29/22 10/29/22 19:28 06:20 06:20 WBC 6.0 RBC 4.41 L Hgb 14.2 Hct 42.4 MCV 96.1 MCH 32.2 MCHC 33.5 RDW 13.2 Plt Count 142 L MPV 10.9 H Immature Gran % (Auto) 0.2 Neut % (Auto) 62.5 Lymph % (Auto) 22.3 [place] % (Auto) 12.1 H Eos % (Auto) 2.7 Baso % (Auto) 0.2 Lymph # (Auto) 1.33 M
[2022-10-29] MEDS: ENOXAPARIN 40 MG/0.4 ML SYRINGE SUB-Q (16:27)
[2022-10-29 22:00] VITALS: BP 107/62; PULSE 67; RESP 18; TEMP 36.6; O2SAT 95
[2022-10-30] MEDS: ONDANSETRON INJ 4 MG/2 ML VIAL IV PUSH ×2 (02:29→20:20)
[2022-10-30 06:00] VITALS: BP 111/80; PULSE 98; RESP 19; TEMP 36.6; O2SAT 92
[2022-10-30 07:39] LABS: Basophils Percent Auto 0.2 % (0.2-1.2); Eosinophils Absolute Auto 0.1 K/mm3 (0-0.3); Eosinophils Percent Auto 1.3 % (0-4.4); Hematocrit 45.5 % (42.0-52.0); Hemoglobin 15.3 g/dL (14.0-18.0); Immature Granulocyte Absolute 0.02 K/mm3 (0.00-0.031); Immature Granulocyte Percent A 0.4 % (0-0.5); Lymphocytes Absolute Auto 1.61 K/mm3 (0.9-3.2); Lymphocytes Percent Auto 29.6 % (18.3-44.2); Mean Corpuscular HGB Conc 33.6 g/dl (32-36); Mean Corpuscular Hemoglobin 32.1 pg (26-34); Mean Corpuscular Volume 95.4 fl (80-100); Mean Platelet Volume 11.2 fl (7.4-10.4); Monocytes Absolute Auto 0.6 K/mm3 (0.1-0.6); Monocytes Percent Auto 10.7 % (2.6-8.5); Neutrophils Absolute Auto 3.2 K/mm3 (1.3-6.7); Neutrophils Percent Auto 57.8 % (45.5-73.1); Platelet Count Result 149 k/mm3 (150-375); Red Blood Count 4.77 M/mm3 (4.6-6.20); Red Cell Distribution Width 12.8 % (11.5-14.5); White Blood Count 5.4 K/mm3 (4.5-10.0)
[2022-10-30 07:59] LABS: Alanine Aminotransferase 13 U/L (6-50); Albumin Level 3.7 g/dL (3.5-5.1); Alkaline Phosphatase 42 U/L (38-126); Anion Gap 5 mmol/L (8-16); Aspartate Amino Transferase 20 U/L (17-59); Bilirubin,Total 0.5 mg/dL (0.2-1.3); Blood Urea Nitrogen 13 mg/dL (9-20); Calcium 8.2 mg/dL (8.4-10.2); Carbon Dioxide 31 mmol/L (22-30); Chloride 99 mmol/L (98-107); Estimated CRCL calculation 91 ml/min; Estimated Glomerular Filt Rate > 60; Glucose 98 mg/dL (65-110); Magnesium 2.1 mg/dL (1.6-2.3); Potassium 3.7 mmol/L (3.4-5.0); Sodium 135 mmol/L (137-145)
[2022-10-30] MEDS: ENOXAPARIN 40 MG/0.4 ML SYRINGE SUB-Q (08:17)
--- NOTE | 2022-10-30 11:45 | PM.IMPN ---
Progress Note: A&P Assessment and Plan (1) Nausea and vomiting: Code(s): R11.2 - Nausea with vomiting, unspecified Status: Acute Assessment and Plan: CT of the abdomen does indicate ileus, GS does not fell this is the case KUB does not show any significant abnormality General surgery consulted Diet advanced to low-fiber Pain medications on board (2) Diarrhea: Code(s): R19.7 - Diarrhea, unspecified Status: Acute Assessment and Plan: See above could be related to food poisoning or colitis Stool culture still pending Continue current treatment (3) Lower abdominal pain: Code(s): R10.30 - Lower abdominal pain, unspecified Status: Acute Assessment and Plan: See above Will give 1 dose of Toradol and MiraLax (4) Prostate cancer: Code(s): C61 - Malignant neoplasm of prostate Status: Chronic Assessment and Plan: Known elevated PSH, cancer with lymph node involvement Sees a urologist and oncologist at [place] Continue outpatient follow up (5) HTN (hypertension): Qualifiers: Hypertension type: primary hypertension Qualified Code(s): I10 - Essential (primary) hypertension Code(s): I10 - Essential (primary) hypertension Status: Acute Assessment and Plan: Current BP is 111/80 Hold lisinopril and amlodipine for now Trend BP Adjust therapy as indicated (6) Umbilical hernia without mention of obstruction or gangrene: Code(s): K42.9 - Umbilical hernia without obstruction or gangrene Status: Acute Assessment and Plan: Stable and chronic History of repair in the past No acute problems or issues Time Spent With Patient Time: 56 minutes Time with patient: Greater than 35 minutes Subjective Date/time seen: 10/30/22 11:45 Interval history: 10/30/22 1145 Patient seems to be doing okay. He did state that he is still having pain which he rates a 7/10. He stated that his pain was pretty much generalized abdomen however it does seem to stem from bilateral lower quadrants. He stated that he did really want take any pain medications because they made him feel little dizzy and loopy. He denies any chest pain or shortness of breath, nausea or vomiting, he does sound to be constipated. He stated that he did go into the bathroom however all she does is passing gas. He is able to tolerate food and liquids. He denies any weakness or fatigue. 10/29/22 1030 Patient is still having some is considerable pain. Currently rates his pain 8/10. Talked to patient about starting oral medications for pain. He denies any chest pain, shortness a breath, weakness or fatigue. He still stated that he is having some nausea however has been controlled with Zofran. Labs appear stable today. Will continue with full liquids for now. 10/28/22? 0845 Patient is a 57-year-old male with a past medical history of anxiety, hypertension, Campylobacter infection, diverticulitis, prostate cancer who presented to the ED with complaints of abdominal pain, nausea, vomiting, diarrhea.? Patient stated that he woke up 630 yesterday morning and was feeling fine had a BM.? Sat down and this has been everything started.? Patient stated that he was having diarrhea about every 15 minutes to half an hour.? The diarrhea than subsided and he started vomiting and dry heaving.? Patient stated that he would try to keep hydrated however we time he would take something to drink a which is come right back up.? He is also experiencing abdominal pain.? Patient stated that his pain is generalized and radiates to his back.? He currently rates his pain an 8/10.? Patient stated that the pain is back is CVA tenderness that goes to the top of his gluteus lesley.? He stated that he has had diverticulitis in the past and he stated this felt similar.? His last meal was beef stick
[2022-10-30] MEDS: lisinopriL 20 MG TABLET PO (11:50)
[2022-10-30] MEDS: amLODIPine BESYLATE 5 MG TABLET PO (11:50)
[2022-10-30] MEDS: KETOROLAC 30 MG/ML VIAL (*BKC) IV PUSH (11:50)
[2022-10-30] MEDS: polyethylene glycoL 3350 17 GM POWD.PACK PO (11:52)
--- NOTE | 2022-10-30 14:00 | PM.PNGS ---
Progress Note: A&P Assessment and Plan (1) Lower abdominal pain: Code(s): R10.30 - Lower abdominal pain, unspecified Status: Acute Assessment and Plan: Improved. Patient can be discharged from my perspective. He will need his stool cultures to be followed up. No need for surgical follow-up. (2) Nausea and vomiting: Code(s): R11.2 - Nausea with vomiting, unspecified Status: Resolved Assessment and Plan: Resolved now for 72 hours or more. Eating solid food now (3) Diarrhea: Code(s): R19.7 - Diarrhea, unspecified Status: Resolved Assessment and Plan: Resolve for 48 hours. (4) Prostate cancer: Code(s): C61 - Malignant neoplasm of prostate Status: Chronic Assessment and Plan: Will follow-up with Medical Oncology and Urology (5) Umbilical hernia without mention of obstruction or gangrene: Code(s): K42.9 - Umbilical hernia without obstruction or gangrene Status: Chronic Assessment and Plan: Asymptomatic, with morbid obesity, would not plan on repair unless became symptomatic or incarcerated. Patient would need to lose weight to have elective repair. Subjective Subjective Date/Time Seen: 10/30/22 14:00 Patient reports: feels better (Diarrhea is gone, eating solid food.), pain is less (Still has some lower abdominal and back pain but it is much improved.) and afebrile Review of Systems Review of Systems: All systems reviewed & are unremarkable except as noted in HPI and below (HPI) Exam Const: General: comfortable and no acute distress; No confusion Orientation/consciousness: patient oriented x3 and No confusion GI: Inspection: non-distended, obesity and no visible herniation GI Palp: Yes Soft to palpation, No Firmness to palpation present (GI), Yes Tenderness to palpation present (GI) (Mild lower abdominal tenderness, improved), No Guarding due to palpation present (GI), No Rigid due to palpation, No Hernia present, No Palpable mass present and No Rebound tenderness present Auscultation: normal bowel sounds Neuro: General: patient oriented x3, no focal motor deficits and No confusion Extrem: General: no calf tenderness and no edema Psych: Affect: normal affect Insight: Good insight present (Psych) Judgement: Good judgement present (Psych) Objective Data Vital Signs Vital Signs: Vital Signs - 24 hr 10/29/22 19:21 10/29/22 22:00 10/30/22 06:00 Temperature 36.6 C 36.6 C Pulse Rate 67 98 Respiratory Rate 18 19 Blood Pressure 107/62 111/80 Pulse Oximetry 95 92 Oxygen Delivery Room Air 10/30/22 08:15 Temperature Pulse Rate Respiratory Rate Blood Pressure Pulse Oximetry Oxygen Delivery Room Air Intake/Output Intake/Output: Intake & Output 10/27/22 10/28/22 10/29/22 10/30/22 23:59 23:59 23:59 23:59 Intake Total 2240 2696 680 Output Total 1450 125 Balance 790 2571 680 Meds/Results Medications: Active Medications Generic Name Dose Route Start Last Admin Trade Name Freq PRN Reason Stop Dose Admin Hydrocodone Bitart/Acetaminophen 1 tab 10/29/22 12:18 10/29/22 13:00 Hydrocodone/Acetaminophen (*Crx) 5-325 Mg Tablet PO 1 tab Q4H PRN Administration Pain Rated 4-6 Amlodipine Besylate 5 mg 10/30/22 09:00 10/30/22 11:50 Amlodipine Besylate 5 Mg Tablet PO 5 mg DAILY IRASEMA Administration Enoxaparin Sodium 40 mg 10/30/22 09:00 10/30/22 08:17 Enoxaparin 40 Mg/0.4 Ml Syringe SUB-Q 40 mg DAILY IRASEMA Administration Hydromorphone HCl 1 mg 10/28/22 16:31 10/29/22 20:14 Hydromorphone Hcl Inj (*Crx) 1 Mg/Ml Syr IV PUSH 1 mg Q4H PRN Administration Pain Rated 7-10 Lisinopril 20 mg 10/30/22 09:00 10/30/22 11:50 Lisinopril 20 Mg Tablet PO 20 mg DAILY IRASEMA Administration Naloxone HCl 0.1 mg 10/28/22 02:22 Naloxone Hcl 0.4 Mg/Ml Vial IV PUSH Q2M PRN Opiate Reversal Ondansetron HCl 4 mg 10/28/22 02:22 10/30/22 02:29
[2022-10-30 14:17] VITALS: BP 115/83; PULSE 73; RESP 16; TEMP 36.9; O2SAT 94
[2022-10-30 21:03] VITALS: BP 125/82; PULSE 90; RESP 16; TEMP 36.4; O2SAT 92
[2022-10-31 05:29] VITALS: BP 111/77; PULSE 85; RESP 16; TEMP 36.5; O2SAT 91
[2022-10-31 06:13] LABS: Basophils Percent Auto 0.7 % (0.2-1.2); Eosinophils Absolute Auto 0.1 K/mm3 (0-0.3); Hematocrit 46.6 % (42.0-52.0); Hemoglobin 15.7 g/dL (14.0-18.0); Immature Granulocyte Absolute 0.01 K/mm3 (0.00-0.031); Immature Granulocyte Percent A 0.2 % (0-0.5); Lymphocytes Absolute Auto 2.06 K/mm3 (0.9-3.2); Lymphocytes Percent Auto 34.3 % (18.3-44.2); Mean Corpuscular HGB Conc 33.7 g/dl (32-36); Mean Corpuscular Hemoglobin 31.8 pg (26-34); Mean Corpuscular Volume 94.3 fl (80-100); Monocytes Absolute Auto 0.6 K/mm3 (0.1-0.6); Monocytes Percent Auto 9.7 % (2.6-8.5); Neutrophils Absolute Auto 3.2 K/mm3 (1.3-6.7); Neutrophils Percent Auto 53.1 % (45.5-73.1); Platelet Count Result 169 k/mm3 (150-375); Red Blood Count 4.94 M/mm3 (4.6-6.20); Red Cell Distribution Width 12.7 % (11.5-14.5)
[2022-10-31 06:52] LABS: Alanine Aminotransferase 15 U/L (6-50); Albumin Level 3.6 g/dL (3.5-5.1); Alkaline Phosphatase 43 U/L (38-126); Anion Gap 2 mmol/L (8-16); Aspartate Amino Transferase 21 U/L (17-59); Bilirubin,Total 0.6 mg/dL (0.2-1.3); Blood Urea Nitrogen 14 mg/dL (9-20); Calcium 8.4 mg/dL (8.4-10.2); Carbon Dioxide 35 mmol/L (22-30); Chloride 98 mmol/L (98-107); Estimated CRCL calculation 99 ml/min; Estimated Glomerular Filt Rate > 60; Glucose 99 mg/dL (65-110); Magnesium 2.2 mg/dL (1.6-2.3); Potassium 3.6 mmol/L (3.4-5.0); Sodium 135 mmol/L (137-145)
[2022-10-31] MEDS: lisinopriL 20 MG TABLET PO (07:58)
[2022-10-31] MEDS: ENOXAPARIN 40 MG/0.4 ML SYRINGE SUB-Q (07:58)
[2022-10-31] MEDS: polyethylene glycoL 3350 17 GM POWD.PACK PO (07:59)
--- NOTE | 2022-10-31 09:00 | PM.DS ---
DS: Admitting Diagnosis Discharge Date 10/31/22 0900 Admitting Diagnosis Food poisoning induced nausea, vomiting, and diarrhea DS: Discharge Diagnosis Discharge Diagnosis (1) Nausea and vomiting: Code(s): R11.2 - Nausea with vomiting, unspecified Status: Resolved Assessment and Plan: CT of the abdomen does indicate ileus, GS does not fell this is the case KUB does not show any significant abnormality General surgery consulted Full liquids, advance as tolerated Pain medications on board (2) Diarrhea: Code(s): R19.7 - Diarrhea, unspecified Status: Resolved Assessment and Plan: See above could be related to food poisoning or colitis Stool culture pending Continue current treatment (3) Lower abdominal pain: Code(s): R10.30 - Lower abdominal pain, unspecified Status: Acute Assessment and Plan: See above (4) Prostate cancer: Code(s): C61 - Malignant neoplasm of prostate Status: Chronic Assessment and Plan: Known elevated PSH, cancer with lymph node involvement Sees a urologist and oncologist at [place] Continue outpatient follow up (5) HTN (hypertension): Qualifiers: Hypertension type: primary hypertension Qualified Code(s): I10 - Essential (primary) hypertension Code(s): I10 - Essential (primary) hypertension Status: Acute Assessment and Plan: Current BP is 122/76 Hold lisinopril and amlodipine for now Trend BP Adjust therapy as indicated (6) Umbilical hernia without mention of obstruction or gangrene: Code(s): K42.9 - Umbilical hernia without obstruction or gangrene Status: Chronic Assessment and Plan: Stable and chronic History of repair in the past No acute problems or issues DS: Summary Hospital Course Hospital Course: Patient is a 57-year-old male with a past medical history of anxiety, hypertension, Campylobacter infection, diverticulitis, prostate cancer who presented to the ED with complaints of abdominal pain accompanied with nausea, vomiting, diarrhea. Upon arrival CT did indicate an ileus. General surgery was consulted and repeat KUB was performed. No obstruction or ileus was noted on the KUB. Patient does admit to eating many meats, cheese, crackers and tomatoes. Patient was having significant amount of diarrhea and nausea vomiting. Patient denied any kind of bleeding. Patient did state that this seemed to be more like food poisoning that had the past. White blood cell count was stable upon arrival at 8.5 and has stable at this time as well. Patient is able to tolerate liquids and has been advanced to low-fiber diet. Patient is denying any nausea, vomiting, diarrhea at this time. Patient does endorse some pain to his abdomen however has been controlled with pain pills. Patient is stable for discharge per labs and vital signs at this time. patient is complaining of constipation this morning. Patient is asking for something to help him have a bowel movement. Added Colace and a suppository for support. Patient is still having some abdominal pain which he rates about a 5. Status at Discharge Functional status at discharge: independent ambulation Overall status at discharge: patient is progressing back to baseline Time Spent with Patient Time attestation: Total time spent providing and/or coordinating discharge services: 53 minutes Time spent: Greater than 30 minutes Specific discharge activities: Diagnostic testing, chart review, developing a treatment plan, education, care coordination documentation, physical exam, result review Exam Narrative: General: well-nourished, well-appearing 57-year-old male, sitting on the side of the bed, comfortable, NARD Neuro: awake, alert and oriented x4, speech clear, no focal neuro deficits noted HEENMT: normocephalic, atraumatic, EOMI, scl
[2022-10-31] MEDS: BISACODYL 10 MG SUPPOSITORY RECTAL (09:21)
[2022-10-31] MEDS: DOCUSATE SODIUM 100 MG CAPSULE PO (09:21)
== END 2022-10-31 11:00 | disposition home or self-care (01) | DRG 249 ==
PROVIDERS: Surgery; Admitting Provider Internal Medicine; PCP Family Medicine; Visit Provider Nurse Practitioner
DX: A05.9 Bacterial foodborne intoxication, unspecified (principal); C61 Malignant neoplasm of prostate; E66.01 Morbid (severe) obesity due to excess calories; R11.2 Nausea with vomiting, unspecified; R10.30 Lower abdominal pain, unspecified; K59.00 Constipation, unspecified; F41.9 Anxiety disorder, unspecified; I10 Essential (primary) hypertension; K42.9 Umbilical hernia without obstruction or gangrene; K57.90 Diverticulosis of intestine, part unspecified, without perforation or abscess without bleeding; Z96.612 Presence of left artificial shoulder joint; Z96.611 Presence of right artificial shoulder joint; Z68.41 Body mass index [BMI] 40.0-44.9, adult; Z88.0 Allergy status to penicillin
CPT/HCPCS: 36415; 74018; 80053; 81001; 83735; 84100; 85025; 85055; 85610; 85730; 87045; 87269; 87272; 87427; 87493; 89055; 93005; 96361; 96374; 96375; 96376; A9270; G0378; G0379; J1170; J1650; J1885; J2270; J2405; J3475

== ENCOUNTER 2023-07-07 14:33 | Emergency (ER) | payer OTHER, SELFPAY ==
[2023-07-07] VITALS (27 sets, daily range): BP systolic 112–138; BP diastolic 73–95; PULSE 100–145; RESP 15–34; TEMP 37–37.7; O2SAT 89–97
--- NOTE | ~2023-07-07 | CT_ITS ---
EXAMINATION: CTA chest PE protocol DATE: 07/07/2023 18:15 CDT INDICATION: Covid. Shortness of breath. TECHNIQUE: Computed tomographic angiography (CTA) of the chest was performed with 100 mL Omnipaque-35 0 intravenous contrast. The dose-length product was 973.70 mGy-cm. Maximum intensity projection 3D-re constructions of the aorta and other arteries were constructed by the technologist on a separate work station. COMPARISON: CT dated 04/15/2018. FINDINGS: Study is technically adequate without evidence for pulmonary embolism. No thoracic lymphade nopathy. No evidence for aortic aneurysm or dissection. Upper abdomen is unremarkable. No thoracic ly mphadenopathy. No endobronchial lesions. No pneumothorax. No focal airspace disease. No suspicious pu lmonary nodules or masses. IMPRESSION: 1. No acute cardiopulmonary disease. Reviewed, dictated and finalized at location A.
--- NOTE | ~2023-07-07 | XR_ITS ---
EXAMINATION: XR chest 2V 07/07/2023 15:26 INDICATION: Weakness. PROCEDURE: 2 view chest COMPARISON: 12/30/2021 FINDINGS: The lungs are clear. The cardiomediastinal silhouette is within normal limits. There are no pleural effusions. There is no pneumothorax suspected. IMPRESSION: 1: NO ACUTE CARDIOPULMONARY DISEASE. Reviewed, dictated and finalized at location A.
--- NOTE | 2023-07-07 14:51 | ECG_ITS ---
Measurements Intervals [place] Rate: 127 P: TN: 0 QRS: -34 QRSD: 100 T: 31 QT: 292 QTc: 426 Interpretive Statements ATRIAL FIBRILLATION WITH RAPID VENTRICULAR RESPONSE LEFT AXIS DEVIATION POOR R WAVE PROGRESSION, ANTERIOR LEADS ST ELEVATION IN ANTEROLATERAL LEADS- PROBABLY EARLY REPOLARIZATION ABNORMALITY BASELINE ARTIFACT- I, II, AVR, V2-V3 ABNORMAL ECG COMPARED TO ECG 10/28/2022 09:47:38 ATRIAL FIBRILLATION NOW PRESENT LEFT-AXIS DEVIATION NOW PRESENT Electronically Signed On 07-07-2023 15:38:31 CDT by Alfonso Snider D.O.
--- NOTE | 2023-07-07 15:05 | ED.URI ---
HPI - URI/Sore Throat General Chief Complaint: Upper Respiratory Infection Stated Complaint: upper resp, body aches Time Seen by Provider: 07/07/23 14:40 Source: patient Mode of arrival: ambulatory Limitations: no limitations History of Present Illness HPI Narrative: patient is a 57-year-old male with myalgias and arthralgias as well as some shortness of breath. He woke from sleep last night multiple times due to gasping for air and shortness of breath. He had some chest pain last night but not at this time. He had pneumonia 30 years ago and feels the same at this time. MD elicited complaint: cough, sore throat and nasal congestion Pertinent past history: pneumonia Onset (ago): day(s) (3) Consistency: constant Severity: moderate Pain scale (0-10): 5 Description of mucous: clear and yellow Able to tolerate fluids by mouth: Yes Exacerbating factors: nothing Relieving factors: nothing Context: other ( Patient also mentions that he has a bad tooth giving him trouble recently) Associated symptoms: chills, nasal congestion, sore throat, cough, chest pain ( not at this time) and shortness of breath Treatments prior to arrival: none Related Data Home Medications Medication Instructions Recorded Confirmed lisinopril 20 mg tablet 20 mg PO DAILY 12/30/21 10/28/22 amlodipine 5 mg tablet 5 mg PO DAILY 10/27/22 10/28/22 diazepam 5 mg tablet 5 mg PO DAILY 10/27/22 10/28/22 Allergies Allergy/AdvReac Type Severity Reaction Status Date / Time Penicillins Allergy Intermediate HIVES Verified 10/28/22 02:22 Review of Systems Review of Systems: All systems reviewed & are unremarkable except as noted in HPI and below Constitutional: Constitutional: Reports no additional constitutional complaints Eyes: Eyes: Reports no additional eye complaints ENT: Reports system reviewed and no additional complaints, except as documented Cardiovascular: Cardiovascular: Reports no additional cardiovascular complaints Respiratory: Respiratory: Reports no additional respiratory complaints Gastrointestinal: Gastrointestinal: Reports no additional gastrointestinal complaints Genitourinary: Genitourinary: Reports no additional male genitourinary complaints Musculoskeletal: Musculoskeletal: Reports no additional musculoskeletal complaints Integumentary/Breasts: Skin/Breast: Reports system reviewed and no additional complaints, except as docu Neurologic: Reports system reviewed and no additional complaints, except as documented Psychiatric: Psychiatric: Reports no additional psychiatric complaints Endocrine: Endocrine: Reports no additional endocrine complaints Hematologic/Lymphatic: Hematologic/Lymphatic: Reports no additional hematologic/lymphatic complaints Allergic/Immunologic: Allergic/Immunologic: Reports no additional allergic/immunologic complaints PMFSH Past Medical History Medical History Campylobacter enteritis Diverticulitis HTN (hypertension) Prostate cancer Surgical History Surgical History History of arthroplasty of both shoulders S/P hernia repair Family History Family History Mother Cancer of breast, female Cerebrovascular accident Father Prostate carcinoma Sibling Prostate carcinoma Brain aneurysm Social History Social History Social History: patient is x2 and lives by himself. Patient has 3 kids and 3 step kids that her fully grown. He denies having any pets. Patient elects his sons Juan in [place] to be his surrogate. Patient wishes to be a full code at this time. Smoking status: Never smoker Alcohol intake: never Substance use: current Substance use type: marijuana Lack of Transportation: No Lack of Food: Never True Current Housing: I Have Housing Concerned [facility]
[2023-07-07 15:07] LABS: Basophils Absolute Auto 0.02 K/mm3 (0.00-0.10); Basophils Percent Auto 0.3 % (0.0-1.0); Eosinophils Absolute Auto 0.03 K/mm3 (0.02-0.50); Eosinophils Percent Auto 0.5 % (1.0-6.0); Hematocrit 47.1 % (40.0-54.0); Immature Granulocyte Absolute 0.02 K/mm3 (0.00-0.00); Immature Granulocyte Percent A 0.3 % (0.0-0.0); Lymphocytes Absolute Auto 0.54 K/mm3 (1.10-4.50); Lymphocytes Percent Auto 8.8 % (18.0-42.0); Mean Corpuscular Hemoglobin 31.9 pg (27.0-31.0); Mean Corpuscular Volume 93.8 fL (78.0-102.0); Mean Platelet Volume 10.8 fl (8.7-11.0); Monocytes Absolute Auto 0.67 K/mm3 (0.10-0.90); Monocytes Percent Auto 10.9 % (2.0-11.0); Neutrophils Absolute Auto 4.9 K/mm3 (1.7-7.2); Neutrophils Percent Auto 79.2 % (50.0-70.0); Platelet Count Result 150 K/mm3 (150-420); Red Blood Count 5.02 M/mm3 (4.70-6.10); Red Cell Distribution Width 12.9 % (11.6-14.4); White Blood Count 6.2 K/mm3 (4.8-10.8)
[2023-07-07 15:21] LABS: Strep Group A RT-PCR NOT DETECTED (Negative)
[2023-07-07 15:28] LABS: Influenza A QL RT-PCR Negative (Negative); Influenza B QL RT-PCR Negative (Negative); SARS-CoV-2 RNA PCR Positive (Negative)
[2023-07-07 15:30] LABS: Lactic Acid Reflex 1.3 mmol/L (0.4-2.0)
[2023-07-07 15:32] LABS: RSV RNA, RT-PCR Negative (Negative)
[2023-07-07 15:37] LABS: Alanine Aminotransferase 15 U/L (16-63); Albumin Level 3.2 g/dL (3.4-5.0); Alkaline Phosphatase 51 U/L (46-116); Anion Gap 8 mmol/L (8-16); Aspartate Amino Transferase 12 U/L (15-37); Bilirubin,Total 0.5 mg/dL (0.00-1.00); Blood Urea Nitrogen 17 mg/dL (7-18); Calcium 8.8 mg/dL (8.5-10.1); Carbon Dioxide 31 mmol/L (21-32); Chloride 104 mmol/L (98-108); Estimated CRCL calculation 85 ml/min; Estimated Glomerular Filt Rate > 60; Glucose 112 mg/dL (70-99); NT Pro B Type Natriuretic Pept 1447 pg/mL (0-125); Osmolality Calculated 298 mOsm/kg (285-295); Sodium 143 mmol/L (136-145); Total Protein 6.2 g/dL (6.4-8.2); Troponin I 4.7 ng/L (0.00-60.4)
[2023-07-07] MEDS: HYDROcodone/acetaminophen (*CRX) 5-325 MG TABLET 1 TAB PO (16:26)
[2023-07-07] MEDS: dilTIAZem HCl INJ 25 MG/5 ML VIAL 10 MG IV PUSH ×2 (16:29→19:19)
[2023-07-07] MEDS: ENOXAPARIN 30 MG/0.3 ML SYRINGE SUB-Q (16:30)
[2023-07-07] MEDS: ENOXAPARIN 100 MG/ML SYRINGE SUB-Q (16:30)
[2023-07-07 16:43] LABS: Appearance Urine Clear (Clear); Bilirubin Urine Negative (Negative); Blood Urine Negative (Negative); Color Urine Light Yellow (Yellow); Glucose Urine UA Negative (Negative); Ketones Urine Negative (Negative); Leukocyte Esterase Ur Negative LEU/UL (Negative); Nitrate Urine Negative (Negative); Protein Urine Negative (Negative); Urobilinogen Urine 0.2 mg/dL (0.2-1.0); pH Urine 7.5 (5.0-8.0)
[2023-07-07 16:43] LABS: Partial Thromboplastin Time 27.6 SEC (23.90-30.70); Prothrombin Time 10.9 Seconds (9.50-12.10)
[2023-07-07 16:45] LABS: Add Urine Microscopic? NO
--- NOTE | 2023-07-07 19:13 | PC.NURSE ---
pt to go to room 207, attempted to call report to ratna at [facility]. will call back after case load report at [facility]. eunice notified
--- NOTE | 2023-07-07 19:21 | PC.NURSE ---
Report received, pt resting c HR noted at 128, VSS. New order recieved. Awaiting call back from [facility] for bed placement and report.
--- NOTE | 2023-07-07 20:01 | PC.NURSE ---
Pt ambulated steadily to ambulance cot. He report severe body aches and report given to [facility]. VSS at d/c.
--- NOTE | 2023-07-07 20:11 | PM.IMHP ---
H&P: HPI History of Present Illness Date/Time: 07/07/23 20:11 [facility] Past Medical History Medical History Campylobacter enteritis Diverticulitis HTN (hypertension) Prostate cancer Surgical History Surgical History History of arthroplasty of both shoulders S/P hernia repair Family History Family History Mother Cancer of breast, female Cerebrovascular accident Father Prostate carcinoma Sibling Prostate carcinoma Brain aneurysm Social History Social History Social History: patient is x2 and lives by himself. Patient has 3 kids and 3 step kids that her fully grown. He denies having any pets. Patient elects his sons Juan in [place] to be his surrogate. Patient wishes to be a full code at this time. 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 Gender identity (if verbalized by the patient): Male Sexual Orientation (if Verbalized by the Patient): Straight or Heterosexual Spiritual care concerns: No Agree to blood products: Yes Meds Home Medications and Allergies Home Medications Medication Instructions Recorded Confirmed Type lisinopril 20 mg tablet 20 mg PO DAILY 12/30/21 10/28/22 History amlodipine 5 mg tablet 5 mg PO DAILY 10/27/22 10/28/22 History diazepam 5 mg tablet 5 mg PO DAILY 10/27/22 10/28/22 History hydrocodone 5 mg-acetaminophen 325 1 tablet PO Q6H PRN Pain Rated 4-6 10/31/22 Rx mg tablet #20 tabs ondansetron 4 mg disintegrating 4 mg PO Q6H PRN nausea and 10/31/22 Rx tablet vomiting #30 tabs Allergies Allergy/AdvReac Type Severity Reaction Status Date / Time Penicillins Allergy Intermediate HIVES Verified 10/28/22 02:22 Vital Signs Vital Signs - 24 hr 07/07/23 14:35 07/07/23 15:47 07/07/23 16:00 Temperature 99.8 F H Pulse Rate 118 H 136 H 126 H Respiratory Rate 20 25 H 24 H Blood Pressure 120/89 Pulse Oximetry 93 93 95 Oxygen Delivery Room Air Room Air 07/07/23 16:15 07/07/23 16:16 07/07/23 16:23 Temperature 99.5 F Pulse Rate 141 H 143 H 143 H Respiratory Rate 21 H 22 H 22 H Blood Pressure 119/88 118/73 Pulse Oximetry 96 95 97 Oxygen Delivery Room Air Room Air 07/07/23 16:17 07/07/23 16:30 07/07/23 16:31 Temperature Pulse Rate 145 H 130 H 127 H Respiratory Rate 20 18 15 Blood Pressure 138/95 H Pulse Oximetry 96 95 95 Oxygen Delivery 07/07/23 16:45 07/07/23 16:46 07/07/23 17:00 Temperature 98.6 F Pulse Rate 114 H 116 H 145 H Respiratory Rate 22 H 20 16 Blood Pressure 133/76 Pulse Oximetry 93 95 92 Oxygen Delivery Room Air 07/07/23 17:15 07/07/23 17:30 07/07/23 17:31 Temperature Pulse Rate 124 H 131 H 135 H Respiratory Rate 20 18 21 H Blood Pressure 113/79 Pulse Oximetry 95 95 95 Oxygen Delivery 07/07/23 17:45 07/07/23 17:46 07/07/23 18:42 Temperature Pulse Rate 119 H 131 H 117 H Respiratory Rate 23 H 22 H 24 H Blood Pressure 122/74 Pulse Oximetry 92 91 93 Oxygen Delivery 07/07/23 18:43 07/07/23 18:45 07/07/23 18:46 Temperature 99.8 F H Pulse Rate 122 H 135 H 140 H Respiratory Rate 20 20 26 H Blood Pressure 113/73 112/85 Pulse Oximetry 95 96 94 Oxygen Delivery 07/07/23 19:00 07/07/23 19:15 07/07/23
== END 2023-07-07 20:05 | disposition short-term general hospital (02) ==
PROVIDERS: Emergency Provider Emergency Medicine; PCP Family Medicine
DX: U07.1 COVID-19 (principal); I48.91 Unspecified atrial fibrillation; I10 Essential (primary) hypertension; Z85.46 Personal history of malignant neoplasm of prostate
CPT/HCPCS: 36415; 71046; 71275; 80053; 81003; 83605; 83880; 84484; 85025; 85610; 85730; 87637; 87651; 93005; 96372; 96374; 96376; 99285; A9270; J1650; Q9967

== ENCOUNTER 2023-07-07 22:17 | Inpatient (IN) | payer OTHER, SELFPAY ==
[2023-07-07 20:50] VITALS: PULSE 144; RESP 18; O2SAT 98
[2023-07-07 20:53] VITALS: BP 134/74; PULSE 144; RESP 18; TEMP 36.8; O2SAT 98
[2023-07-07 20:54] VITALS: PULSE 120
--- NOTE | 2023-07-07 21:01 | ADMGEN ---
Addendum entered by Natasha Wallace RN 07/07/23 21:02: Attempted to notify Dr. Mauricio of DA arrival and order requests with no answer. Original Note: This patient, Chris Brito, was admitted to IMU Room 207-01 on 07/07/23 at 2038 as a DA from [facility]. Patient/family oriented to hospital policies and general routines including ID bracelet, bed and alarms, visiting hours, pain management, procedures, bathroom and other care routines, personal items, smoking policy, room service/diet, and visiting hours. Information on how to activate the Rapid Response Team has been discussed. Patient/Family are encouraged to report perceived risks to care and to ask questions if they do not understand what they are told or what they should do. Attempted to notifiy Dr. Mauricio
[2023-07-07 22:00] VITALS: PULSE 126
--- NOTE | 2023-07-07 22:50 | PM.IMHP ---
H&P: HPI History of Present Illness Date/Time: 07/07/23 22:50 Chief Complaint: SOB Narrative: This is a 57-year-old male with past medical history significant for hypertension, patient presented to emergency room at [facility] due to worsening shortness of breath generalized malaise body aches and pains night sweats for the last 2 days poor per orally intake poor appetite. Patient tested positive for COVID, requiring supplemental oxygen by nasal cannula. Patient was rule out for acute pulmonary embolism. EXAMINATION: CTA chest PE protocol DATE: 07/07/2023 18:15 CDT INDICATION: Covid. Shortness of breath. TECHNIQUE: Computed tomographic angiography (CTA) of the chest was performed with 100 mL Omnipaque-350 intravenous contrast. The dose-length product was 973.70 mGy-cm. Maximum intensity projection 3D-reconstructions of the aorta and other arteries were constructed by the technologist on a separate workstation. COMPARISON: CT dated 04/15/2018. FINDINGS: Study is technically adequate without evidence for pulmonary embolism. No thoracic lymphadenopathy. No evidence for aortic aneurysm or dissection. Upper abdomen is unremarkable. No thoracic lymphadenopathy. No endobronchial lesions. No pneumothorax. No focal airspace disease. No suspicious pulmonary nodules or masses. IMPRESSION: 1. No acute cardiopulmonary disease. EXAMINATION: XR chest 2V 07/07/2023 15:26 INDICATION: Weakness. PROCEDURE:? 2 view chest COMPARISON: 12/30/2021 FINDINGS: The lungs are clear.? The cardiomediastinal silhouette is within normal limits.? There are no pleural effusions.? There is no pneumothorax suspected.? IMPRESSION: 1:? NO ACUTE CARDIOPULMONARY DISEASE. EKG Rate 127 RI 0 QRSd 100 QT 292 QTc 426 --[place]-- P QRS -34 T 31 ATRIAL FIBRILLATION WITH RAPID VENTRICULAR RESPONSE LEFT AXIS DEVIATION POOR R WAVE PROGRESSION, ANTERIOR LEADS ST ELEVATION IN ANTEROLATERAL LEADS- PROBABLY EARLY REPOLARIZATION ABNORMALITY BASELINE ARTIFACT- I, II, AVR, V2-V3 ABNORMAL ECG COMPARED TO ECG 10/28/2022 09:47:38 ATRIAL FIBRILLATION NOW PRESENT LEFT-AXIS DEVIATION NOW PRESENT Electronically Signed On 07-07-2023 15:38:31 CDT by Alfonso Snider D.O. Review of Systems Review of Systems: Shortness of breath, night sweats, generalized malaise, body aches and pains, poor per orally intake, poor appetite Constitutional: Constitutional: Reports body ache(s), Reports chills, Reports fever(s), Reports malaise, Reports night sweats and Reports poor appetite Eyes: Eyes: Denies change in vision ENT: Denies dysphagia, Denies nasal congestion, Denies nasal discharge and Denies odynophagia Cardiovascular: Cardiovascular: Denies chest pain, Denies radiating jaw, neck or arm pain and Denies palpitations Respiratory: Respiratory: Denies change in phlegm color, Denies excessive phlegm production and Reports dyspnea Gastrointestinal: Gastrointestinal: Denies abdominal pain, Denies dyspepsia, Denies heartburn, Denies diarrhea, Denies nausea and Denies vomiting Genitourinary: Genitourinary: Denies dysuria and Denies flank pain Musculoskeletal: Musculoskeletal: Reports myalgias Integumentary/Breasts: Skin/Breast: Denies rash Neurologic: Denies focal weakness and Denies Sensory deficit (Neuro) Psychiatric: Psychiatric: Reports no additional psychiatric complaints and Reports as per HPI Endocrine: Endocrine: Denies cold intolerance, Denies flushing, Denies heat intolerance, Denies polyphagia, Denies polydipsia and Denies palpitations Hematologic/Lymphatic: Hematologic/Lymphatic: Reports no additional hematologic/lymphatic complaints and Reports as per HPI Allergic/Immunologic: Allergic/Immunologic: Reports no additional allergic/immunologic complaints and Reports as per HPI PMFSH Past Medical History Medical History Campylobacter enteritis Diverticulitis HTN (hypertension) Prostate cancer Surgical Hi
[2023-07-07] MEDS: HYDROmorphone HCL INJ (*CRX) 1 MG/ML SYR IV PUSH (23:05)
[2023-07-07 23:27] LABS: Lactic Acid Reflex 1.8 mmol/L (0.7-2.0)
[2023-07-08] VITALS (28 sets, daily range): BP systolic 106–130; BP diastolic 64–85; PULSE 94–134; RESP 16–24; TEMP 36.2–37.3; O2SAT 93–98; BMI 39.0
--- NOTE | 2023-07-08 | ECHO_ITS ---
Patient Info Name: Chris Brito Age: 57 years : 1965 Gender: Male Ht: 74 in Wt: 295 lbs BSA: 2.69 m2 HR: 98 bpm BP: 106 / 70 mmHg Heart Rhythm: Atrial Fibrillation Technical Quality: Good Exam Date: 07/08/2023 2:28 PM Exam Location: Echo Lab Patient Status: Inpatient Admit Date: 07/07/2023 Staff Ordering Physician: Jesús Zamora MD General Technician: EDGAR Attending Provider: Dustin Mauricio MD Exam Type: CA echo doppler color flow Study Info Indications - A-FIB Complete two-dimensional, color flow and Doppler transthoracic echocardiogram is performed. Summary 1. Complete two-dimensional, color flow and Doppler transthoracic echocardiogram is performed. 2. Left ventricular chamber dimension is normal. 3. Left ventricular systolic function is normal, estimated at 65-70%. 4. There is moderately increased left ventricular wall thickness. 5. The left ventricular diastolic function is indeterminate. 6. Left atrial chamber dimension is moderately enlarged. 7. Right atrial chamber dimension is mildly enlarged. 8. There is mild tricuspid valve regurgitation. 9. There is mild pulmonic regurgitation. 10. The aortic root size at the sinus of Valsalva is mildly dilated. Left Ventricle Left ventricular chamber dimension is normal. Left ventricular systolic function is normal, estimated at 65-70%. There is moderately increased left ventricular wall thickness. The left ventricular diastolic function is indeterminate. Right Ventricle Right ventricular chamber dimension is normal. Right ventricular systolic function is normal. Left Atria Left atrial chamber dimension is moderately enlarged. Right Atria Right atrial chamber dimension is mildly enlarged. Atrial Septum Intact interatrial septum visualized by color flow imaging. Aortic Valve The aortic valve is trileaflet. There is mild aortic valve sclerosis. There is no aortic valve stenosis. There is trace aortic valve regurgitation. Pulmonic Valve The pulmonic valve is normal. There is no pulmonic valve stenosis. There is mild pulmonic regurgitation. Mitral Valve The mitral valve has normal leaflets. There is no mitral valve stenosis. There is trace mitral valve regurgitation. Tricuspid Valve The tricuspid valve leaflets are normal. There is no significant tricuspid valve stenosis. There is mild tricuspid valve regurgitation. No pulmonary hypertension, estimated pulmonary arterial systolic pressure is 28 mmHg. Pericardium/Pleural The pericardium appears normal. There is trivial pericardial effusion. Aorta The aortic root size at the sinus of Valsalva is mildly dilated. Left Ventricular Outflow Tract Name Value Normal LVOT 2D LVOT Diameter 2.4 cm LVOT Doppler LVOT Peak Gradient 2 mmHg LVOT Mean Gradient 2 mmHg LVOT VTI 15 cm LVOT VTI/AV VTI Ratio 0.6 LVOT Stroke Volume 63 ml LVOT CO 5.9 l/min LVOT CI 2.2 l/min/m2 Pulmonic Valve Na
[2023-07-08] MEDS: ALBUTEROL SULFATE NEB 2.5 MG/3 ML INH INHALATION ×4 (02:39→21:28)
[2023-07-08] MEDS: ACETAMINOPHEN 500 MG TABLET 1000 MG PO (04:38)
[2023-07-08 05:04] LABS: Basophils Percent Auto 0.5 % (0.2-1.2); Hematocrit 48.2 % (42.0-52.0); Hemoglobin 15.9 g/dL (14.0-18.0); Immature Granulocyte Absolute 0.03 K/mm3 (0.00-0.031); Immature Granulocyte Percent A 0.5 % (0-0.5); Lymphocytes Absolute Auto 1.14 K/mm3 (0.9-3.2); Lymphocytes Percent Auto 17.2 % (18.3-44.2); Mean Corpuscular Hemoglobin 31.5 pg (26-34); Mean Corpuscular Volume 95.6 fl (80-100); Mean Platelet Volume 11.4 fl (7.4-10.4); Monocytes Absolute Auto 1.1 K/mm3 (0.1-0.6); Monocytes Percent Auto 17.1 % (2.6-8.5); Neutrophils Absolute Auto 4.3 K/mm3 (1.3-6.7); Neutrophils Percent Auto 64.7 % (45.5-73.1); Platelet Count Result 146 k/mm3 (150-375); Red Blood Count 5.04 M/mm3 (4.6-6.20); Red Cell Distribution Width 13.3 % (11.5-14.5); White Blood Count 6.6 K/mm3 (4.5-10.0)
[2023-07-08 05:16] LABS: Anion Gap 8 mmol/L (8-16); Blood Urea Nitrogen 16 mg/dL (9-20); Calcium 8.8 mg/dL (8.4-10.2); Carbon Dioxide 30 mmol/L (22-30); Chloride 99 mmol/L (98-107); Estimated CRCL calculation 95 ml/min; Estimated Glomerular Filt Rate > 60; Glucose 107 mg/dL (65-110); Potassium 3.8 mmol/L (3.4-5.0); Sodium 137 mmol/L (137-145)
[2023-07-08] MEDS: HYDROmorphone HCL INJ (*CRX) 1 MG/ML SYR IV PUSH (06:42)
[2023-07-08] MEDS: dilTIAZem HCL 30 MG TABLET PO (06:43)
[2023-07-08] MEDS: ENOXAPARIN 40 MG/0.4 ML SYRINGE SUB-Q (08:41)
--- NOTE | 2023-07-08 11:33 | PM.IMPN ---
Progress Note: A&P Assessment and Plan (1) Acute hypoxic respiratory failure: Code(s): J96.01 - Acute respiratory failure with hypoxia Status: Acute (2) COVID-19: Code(s): U07.1 - COVID-19 Status: Acute (3) HTN (hypertension): Qualifiers: Hypertension type: primary hypertension Qualified Code(s): I10 - Essential (primary) hypertension Code(s): I10 - Essential (primary) hypertension Status: Acute (4) Prostate cancer: Code(s): C61 - Malignant neoplasm of prostate Status: Chronic Plan 57-year-old male who presented with worsening shortness of breast generalize malaise body aches and night sweats for the past 2 days. Poor appetite. Tested positive for COVID. EKG atrial fibrillation with rapid ventricular rate. Chest x-ray with no acute cardiopulmonary disease. BNP 1447 lactate normal creatinine 1.2 WBC 6.2 history of prostate cancer and hypertension anxiety depression. CTA with no acute cardiopulmonary disease. Acute hypoxic respiratory failure needing oxygen supplementation. On Lovenox albuterol nebs. New onset AFib received full-dose anticoagulation in the ER. Start decadron and remdesivir. Lovenox full dose. Echo ordered. Generalized malaise. [place] p.r.n. Subjective Date/time seen: 07/08/23 11:33 Interval history: 57-year-old male who presented with worsening shortness of breast generalize malaise body aches and night sweats for the past 2 days. Poor appetite. Tested positive for COVID. EKG atrial fibrillation with rapid ventricular rate. Chest x-ray with no acute cardiopulmonary disease. BNP 1447 lactate normal creatinine 1.2 WBC 6.2 history of prostate cancer and hypertension anxiety depression. CTA with no acute cardiopulmonary disease. Acute hypoxic respiratory failure needing oxygen supplementation. On Lovenox albuterol nebs. New onset AFib received full-dose anticoagulation in the ER. Start decadron and remdesivir Review of Systems Review of Systems: All systems reviewed & are unremarkable except as noted in HPI and below Objective Data Vital Signs Vital Signs: Vital Signs - 24 hr 07/07/23 20:53 07/07/23 20:50 07/08/23 00:00 Temperature 98.2 F 99.1 F Pulse Rate 144 H 144 H 134 H Respiratory Rate 18 18 16 Blood Pressure 134/74 120/74 Pulse Oximetry 98 98 98 Oxygen Delivery Nasal Cannula Oxygen Flow Rate 2 07/07/23 20:54 07/07/23 22:00 07/08/23 00:00 Temperature Pulse Rate 120 H 126 H 134 H Respiratory Rate 16 Blood Pressure Pulse Oximetry 98 Oxygen Delivery Nasal Cannula Oxygen Flow Rate 2 07/08/23 00:00 07/08/23 01:45 07/08/23 02:43 Temperature Pulse Rate 117 H 109 H 115 H Respiratory Rate 18 Blood Pressure Pulse Oximetry Oxygen Delivery Oxygen Flow Rate 07/08/23 02:48 07/08/23 04:00 07/08/23 04:00 Temperature 98.9 F Pulse Rate 105 H 118 H 118 H Respiratory Rate 18 22 H Blood Pressure 130/81 Pulse Oximetry 95 Oxygen Delivery Oxygen Flow Rate 07/08/23 04:00 07/08/23 06:00 07/08/23 07:42 Temperature 97.6 F Pulse Rate 118 H 118 H 94 Respiratory Rate 22 H 18 Blood Pressure 113/75 Pulse Oximetry 95 95 Oxygen Delivery Nasal Cannula Oxygen Flow Rate 2 07/08/23 08:53 07/08/23 08:57 07/08/23 09:05 Temperature Pulse Rate 96 102 H Respiratory Rate 18 18 Blood Pressure Pulse Oximetry 96 Oxygen Delivery Nasal Cannula Oxygen Flow Rate 1 07/08/23 08:00 07/08/23 08:00 07/08/23 10:00 Temperature Pulse Rate 98 100 Respiratory Rate Blood Pressure Pulse Oximetry 95 Oxygen Delivery Nasal Cannula Oxygen Flow Rate 2 07/08/23 11:26 Temperature 98.4 F Pulse Rate 109 H Respiratory Rate 18 Blood Pressure 106/70 Pulse Oximetry 96 Oxygen Delivery Oxygen Flow Rate Intake/Output Intake/Output: Intake & Output 07/05/23 07/06/23 07/07/23 07/08/23 23:59 23:59 23:59 23:59 Intake Total 360 Outpu
[2023-07-08] MEDS: METOPROLOL TARTRATE 12.5 MG TABLET PO ×3 (12:33→23:58)
[2023-07-08] MEDS: HYDROcodone/acetaminophen (*CRX) 5-325 MG TABLET 1 TAB PO (12:33)
[2023-07-08 12:42] LABS: Prothrombin Time 13.8 Seconds (11.1-14.7)
[2023-07-08 12:55] LABS: Alanine Aminotransferase 15 U/L (6-50); Alkaline Phosphatase 35 U/L (38-126); Aspartate Amino Transferase 25 U/L (17-59); Bilirubin,Total 0.6 mg/dL (0.2-1.3)
[2023-07-08 13:05] LABS: CRP 3.3 mg/dL (<1.0); Creatine Kinase 63 U/L (55-170)
[2023-07-08 13:12] LABS: Procalcitonin 0.1 ng/mL
[2023-07-08] MEDS: REMDESIVIR 200 MG/NS 250 ML 200 MG/250 ML BAG 250 MG IVPB (13:56)
[2023-07-08] MEDS: IBUPROFEN 600 MG TABLET PO ×2 (14:53→21:26)
[2023-07-08] MEDS: HYDROcodone/acetaminophen (*CRX) 7.5-325 MG TABLET 1 TAB PO (18:03)
[2023-07-08] MEDS: ENOXAPARIN 80 MG/0.8 ML SYRINGE 140 MG SUB-Q (21:51)
[2023-07-09] VITALS (26 sets, daily range): BP systolic 110–148; BP diastolic 56–92; PULSE 80–114; RESP 18–24; TEMP 35.8–36.8; O2SAT 92–98
[2023-07-09] MEDS: HYDROcodone/acetaminophen (*CRX) 7.5-325 MG TABLET 1 TAB PO ×4 (00:03→19:08)
--- NOTE | 2023-07-09 01:39 | PC.NURSE ---
Daylight Savings Time For Daylight Savings Time Ending in the Fall - Clocks are moved back. For Daylight Savings Time Beginning in the Spring - Clocks are moved ahead. For [facility], the time of change occurs at 0200 hrs. Time is taken from the gravity prospecting observer. This entry on the patient's chart recognizes the change in time reflected during documentation. Example: 2 entries for vital signs may be charted for 0200 hrs.
[2023-07-09] MEDS: ALBUTEROL SULFATE NEB 2.5 MG/3 ML INH INHALATION ×4 (02:57→21:20)
[2023-07-09] MEDS: ACETAMINOPHEN 500 MG TABLET 1000 MG PO (03:38)
[2023-07-09 04:21] LABS: Basophils Percent Auto 0.2 % (0.2-1.2); Hematocrit 48.1 % (42.0-52.0); Hemoglobin 15.9 g/dL (14.0-18.0); Immature Granulocyte Absolute 0.01 K/mm3 (0.00-0.031); Immature Granulocyte Percent A 0.2 % (0-0.5); Immature Platelet Fraction Pct 8.1 % (0.9-11.2); Lymphocytes Absolute Auto 0.83 K/mm3 (0.9-3.2); Lymphocytes Percent Auto 18.4 % (18.3-44.2); Mean Corpuscular HGB Conc 33.1 g/dl (32-36); Mean Corpuscular Hemoglobin 31.6 pg (26-34); Mean Corpuscular Volume 95.6 fl (80-100); Monocytes Absolute Auto 0.3 K/mm3 (0.1-0.6); Monocytes Percent Auto 7.3 % (2.6-8.5); Neutrophils Absolute Auto 3.3 K/mm3 (1.3-6.7); Neutrophils Percent Auto 73.9 % (45.5-73.1); Platelet Count Result 134 k/mm3 (150-375); Red Blood Count 5.03 M/mm3 (4.6-6.20); Red Cell Distribution Width 13.1 % (11.5-14.5); White Blood Count 4.5 K/mm3 (4.5-10.0)
[2023-07-09 04:34] LABS: Alanine Aminotransferase 18 U/L (6-50); Albumin Level 3.8 g/dL (3.5-5.1); Alkaline Phosphatase 41 U/L (38-126); Anion Gap 9 mmol/L (8-16); Aspartate Amino Transferase 23 U/L (17-59); Bilirubin,Total 0.4 mg/dL (0.2-1.3); Blood Urea Nitrogen 21 mg/dL (9-20); Calcium 8.8 mg/dL (8.4-10.2); Carbon Dioxide 26 mmol/L (22-30); Chloride 103 mmol/L (98-107); Estimated CRCL calculation 115 ml/min; Estimated Glomerular Filt Rate > 60; Glucose 176 mg/dL (65-110); Magnesium 2.1 mg/dL (1.6-2.3); Potassium 3.7 mmol/L (3.4-5.0); Sodium 138 mmol/L (137-145)
[2023-07-09] MEDS: ENOXAPARIN 80 MG/0.8 ML SYRINGE 140 MG SUB-Q ×2 (11:15→21:52)
[2023-07-09] MEDS: METOPROLOL TARTRATE 12.5 MG TABLET PO ×2 (11:15→13:23)
[2023-07-09] MEDS: REMDESIVIR 100 MG/NS 250 ML 100 MG/250 ML BAG 250 MG IVPB (11:15)
[2023-07-09] MEDS: IBUPROFEN 600 MG TABLET PO ×2 (11:17→17:26)
--- NOTE | 2023-07-09 12:10 | PM.IMPN ---
Progress Note: A&P Assessment and Plan (1) Acute hypoxic respiratory failure: Code(s): J96.01 - Acute respiratory failure with hypoxia Status: Acute (2) COVID-19: Code(s): U07.1 - COVID-19 Status: Acute (3) HTN (hypertension): Qualifiers: Hypertension type: primary hypertension Qualified Code(s): I10 - Essential (primary) hypertension Code(s): I10 - Essential (primary) hypertension Status: Acute (4) Prostate cancer: Code(s): C61 - Malignant neoplasm of prostate Status: Chronic Plan 57-year-old male who presented with worsening shortness of breast generalize malaise body aches and night sweats for the past 2 days. Poor appetite. Tested positive for COVID. EKG atrial fibrillation with rapid ventricular rate. Chest x-ray with no acute cardiopulmonary disease. BNP 1447 lactate normal creatinine 1.2 WBC 6.2 history of prostate cancer and hypertension anxiety depression. CTA with no acute cardiopulmonary disease. Acute hypoxic respiratory failure needing oxygen supplementation. On Lovenox albuterol nebs. New onset AFib received full-dose anticoagulation in the ER. Start decadron and remdesivir. Lovenox full dose. Chads Vasc score 2. echo ordered. Generalized malaise. [place] p.r.n. will add muscle relaxers. History of snoring stop Bang score 7: Will to apnea link test. Oxygen requirement has improved down to room air today. Will up titrate metoprolol to 25 b.i.d. Subjective Date/time seen: 07/09/23 12:10 Interval history: 57-year-old male who presented with worsening shortness of breast generalize malaise body aches and night sweats for the past 2 days. Poor appetite. Tested positive for COVID. EKG atrial fibrillation with rapid ventricular rate. Chest x-ray with no acute cardiopulmonary disease. BNP 1447 lactate normal creatinine 1.2 WBC 6.2 history of prostate cancer and hypertension anxiety depression. CTA with no acute cardiopulmonary disease. Acute hypoxic respiratory failure needing oxygen supplementation. On Lovenox albuterol nebs. New onset AFib received full-dose anticoagulation in the ER. Start decadron and remdesivir Review of Systems Review of Systems: All systems reviewed & are unremarkable except as noted in HPI and below Exam Narrative: GENERAL: The patient is well developed, not in acute distress HEENT: Nonicteric sclerae, PERRLA, EOMI. Oropharynx clear. Moist mucous membranes. Conjunctivae appear well perfused. CHEST: Chest wall is nontender. HEART: AFib rhythm mild RVR without murmur, rubs, or gallops LUNGS: Clear to auscultation bilaterally. no respiratory distress ABDOMEN: Soft, positive bowel sounds, non-tender, no organomegaly. SKIN: No rash, no excessive bruising, petechiae, or purpura. NEUROLOGIC: Cranial nerves II-XII intact, alert and oriented x 3, no gross motor deficits EXTREMITIES: no edema, cyanosis or clubbing Objective Data Vital Signs Vital Signs: Vital Signs - 24 hr 07/08/23 14:00 07/08/23 14:49 07/08/23 15:12 Temperature Pulse Rate 99 109 H 103 H Respiratory Rate 24 H 24 H Blood Pressure Pulse Oximetry Oxygen Delivery Oxygen Flow Rate Fraction of Inspired Oxygen 07/08/23 15:35 07/08/23 16:00 07/08/23 16:00 Temperature 97.9 F Pulse Rate 116 H 113 H Respiratory Rate 17 Blood Pressure 118/75 Pulse Oximetry 93 94 Oxygen Delivery Nasal Cannula Oxygen Flow Rate 2 Fraction of Inspired Oxygen 07/08/23 18:00 07/08/23 20:00 07/08/23 21:25 Temperature 98.5 F Pulse Rate 104 H 94 116 H Respiratory Rate 20 Blood Pressure 124/85 Pulse Oximetry 96 Oxygen Delivery Oxygen Flow Rate Fraction of Inspired Oxygen 07/08/23 23:21 07/08/23 23:58 07/08/23 20:00 Temperature 97.2 F L Pulse Rate 132 H 112 H Respiratory Rate 20 Blood Pressure 107/64 Pulse Oximetry 94 97 Oxygen Delivery Nasal Cannula Oxygen Flow Rate 1 Fraction of Inspired
[2023-07-09 14:36] LABS: Thyroid Stimulating Hormone Reflex 0.182 uIU/mL (0.465-4.68)
[2023-07-09 15:15] LABS: Free T4 Free Thyroxine Reflex 0.74 ng/dL (0.78-2.19)
[2023-07-09] MEDS: METOPROLOL TARTRATE 25 MG TABLET PO (21:52)
[2023-07-10] VITALS (24 sets, daily range): BP systolic 108–131; BP diastolic 74–93; PULSE 50–128; RESP 16–20; TEMP 36.3–37; O2SAT 92–99
[2023-07-10] MEDS: HYDROcodone/acetaminophen (*CRX) 7.5-325 MG TABLET 1 TAB PO ×4 (02:52→21:40)
--- NOTE | 2023-07-10 03:00 | PCRCNOTE ---
pt had apnea link completed overnight, screening for obstructive sleep apnea. Therefore, pt could not be woken for his 0200 breathing tx. Albuterol tx was not given at this time
[2023-07-10 07:23] LABS: Basophils Percent Auto 0.1 % (0.2-1.2); Hematocrit 47.7 % (42.0-52.0); Hemoglobin 15.8 g/dL (14.0-18.0); Immature Granulocyte Absolute 0.03 K/mm3 (0.00-0.031); Immature Granulocyte Percent A 0.4 % (0-0.5); Lymphocytes Absolute Auto 1.56 K/mm3 (0.9-3.2); Lymphocytes Percent Auto 18.6 % (18.3-44.2); Mean Corpuscular HGB Conc 33.1 g/dl (32-36); Mean Corpuscular Hemoglobin 31.3 pg (26-34); Mean Corpuscular Volume 94.6 fl (80-100); Mean Platelet Volume 11.2 fl (7.4-10.4); Monocytes Absolute Auto 0.8 K/mm3 (0.1-0.6); Monocytes Percent Auto 9.6 % (2.6-8.5); Neutrophils Percent Auto 71.3 % (45.5-73.1); Platelet Count Result 150 k/mm3 (150-375); Red Blood Count 5.04 M/mm3 (4.6-6.20); Red Cell Distribution Width 13.2 % (11.5-14.5); White Blood Count 8.4 K/mm3 (4.5-10.0)
[2023-07-10 07:33] LABS: Prothrombin Time 13.2 Seconds (11.1-14.7)
[2023-07-10 07:34] LABS: Alanine Aminotransferase 16 U/L (6-50); Albumin Level 3.6 g/dL (3.5-5.1); Alkaline Phosphatase 34 U/L (38-126); Anion Gap 3 mmol/L (8-16); Aspartate Amino Transferase 22 U/L (17-59); Bilirubin,Total 0.4 mg/dL (0.2-1.3); Blood Urea Nitrogen 23 mg/dL (9-20); Calcium 8.3 mg/dL (8.4-10.2); Carbon Dioxide 30 mmol/L (22-30); Chloride 103 mmol/L (98-107); Estimated CRCL calculation 128 ml/min; Estimated Glomerular Filt Rate > 60; Glucose 99 mg/dL (65-110); Sodium 136 mmol/L (137-145)
[2023-07-10] MEDS: ALBUTEROL SULFATE NEB 2.5 MG/3 ML INH INHALATION ×3 (08:31→20:31)
[2023-07-10] MEDS: ENOXAPARIN 80 MG/0.8 ML SYRINGE 140 MG SUB-Q ×2 (09:41→21:35)
[2023-07-10] MEDS: REMDESIVIR 100 MG/NS 250 ML 100 MG/250 ML BAG 250 MG IVPB (09:41)
[2023-07-10] MEDS: METOPROLOL TARTRATE 25 MG TABLET PO ×2 (09:41→14:41)
[2023-07-10] MEDS: IBUPROFEN 600 MG TABLET PO (11:09)
--- NOTE | 2023-07-10 13:26 | PM.IMPN ---
Progress Note: A&P Assessment and Plan (1) Acute hypoxic respiratory failure: Code(s): J96.01 - Acute respiratory failure with hypoxia Status: Acute (2) COVID-19: Code(s): U07.1 - COVID-19 Status: Acute (3) HTN (hypertension): Qualifiers: Hypertension type: primary hypertension Qualified Code(s): I10 - Essential (primary) hypertension Code(s): I10 - Essential (primary) hypertension Status: Acute (4) Prostate cancer: Code(s): C61 - Malignant neoplasm of prostate Status: Chronic Plan 57-year-old male who presented with worsening shortness of breast generalize malaise body aches and night sweats for the past 2 days. Poor appetite. Tested positive for COVID. EKG atrial fibrillation with rapid ventricular rate. Chest x-ray with no acute cardiopulmonary disease. BNP 1447 lactate normal creatinine 1.2 WBC 6.2 history of prostate cancer and hypertension anxiety depression. CTA with no acute cardiopulmonary disease. Acute hypoxic respiratory failure needing oxygen supplementation. On Lovenox albuterol nebs. New onset AFib received full-dose anticoagulation in the ER. Start decadron and remdesivir. Lovenox full dose. Chads Vasc score 2. echo reviewed. Generalized malaise. [place] p.r.n. will add muscle relaxers. History of snoring stop Bang score 7: Apnea link test was done 07/09/2023 however patient was not to sleep. Will repeat again today was hypoxic at nighttime on this testing. AFib with RVR still persistent. Will increase the dose of metoprolol cardiology will be consulted for further recommendations. DVT prophylaxis on Lovenox switched to Eliquis at discharge or other nnoACs Subjective Date/time seen: 07/10/23 13:26 Interval history: 57-year-old male who presented with worsening shortness of breast generalize malaise body aches and night sweats for the past 2 days. Poor appetite. Tested positive for COVID. EKG atrial fibrillation with rapid ventricular rate. Chest x-ray with no acute cardiopulmonary disease. BNP 1447 lactate normal creatinine 1.2 WBC 6.2 history of prostate cancer and hypertension anxiety depression. CTA with no acute cardiopulmonary disease. Acute hypoxic respiratory failure needing oxygen supplementation. On Lovenox albuterol nebs. New onset AFib received full-dose anticoagulation in the ER. Start decadron and remdesivir 07/10/2023: AFib with RVR still persist. Breathing is okay. He was not sleeping while did the sleep apnea testing. But hypoxia was noted Review of Systems Review of Systems: All systems reviewed & are unremarkable except as noted in HPI and below Exam Narrative: GENERAL: The patient is well developed, not in acute distress HEENT: Nonicteric sclerae, PERRLA, EOMI. Oropharynx clear. Moist mucous membranes. Conjunctivae appear well perfused. CHEST: Chest wall is nontender. HEART: AFib rhythm mild RVR without murmur, rubs, or gallops LUNGS: Clear to auscultation bilaterally. no respiratory distress ABDOMEN: Soft, positive bowel sounds, non-tender, no organomegaly. SKIN: No rash, no excessive bruising, petechiae, or purpura. NEUROLOGIC: Cranial nerves II-XII intact, alert and oriented x 3, no gross motor deficits EXTREMITIES: no edema, cyanosis or clubbing Objective Data Vital Signs Vital Signs: Vital Signs - 24 hr 07/09/23 13:36 07/09/23 14:47 07/09/23 14:42 Temperature 96.8 F L Pulse Rate 100 94 98 Respiratory Rate 20 18 18 Blood Pressure 148/86 H Pulse Oximetry 95 Oxygen Delivery 07/09/23 14:00 07/09/23 16:00 07/09/23 16:59 Temperature 97.6 F Pulse Rate 103 H 111 H Respiratory Rate 22 H Blood Pressure 128/82 Pulse Oximetry 95 Oxygen Delivery Room Air 07/09/23 16:00 07/09/23 18:00 07/09/23 20:00 Temperature 98.2 F Pulse Rate 99 113 H 108 H Respiratory Rate 20 Blood Pressure 136/92 H Pulse Oximetry 95 Oxygen Delivery 07/09/23 21:52 07/09/23 20:
--- NOTE | 2023-07-10 15:31 | PM.CNCAR ---
Assessment and Plan Assessment and plan (1) Atrial fibrillation: Code(s): I48.91 - Unspecified atrial fibrillation Status: Acute Assessment and Plan: New onset of atrial fibrillation likely secondary to acute infection with COVID-19. He denies any history of atrial fibrillation. Previous EKGs show sinus rhythm with a first-degree AV block and junctional bradycardia. His rate is currently reasonably controlled on 50 mg metoprolol tartrate q.12 hours. Will continue with this dose for now. Concern for bradycardia with AV john blocking agents because of evidence of conduction system disease with first-degree AV block and junctional rhythm on previous ECGs. Continue to monitor on telemetry. Hopefully, as he recovers from his COVID illness, his heart rate will improve as well. He has a CHADS2 Vasc score of 1, therefore systemic anticoagulation is not indicated at this time. Will place him on full-dose aspirin instead. Long-term, can consider ИВАН cardioversion as an outpatient if he remains in atrial fibrillation. At that point, he would require systemic anticoagulation for least 1 month following cardioversion. Echocardiogram has already been performed and is unremarkable. Check an ApneaLink tonight. Cardiology will follow along on an as needed basis. Please call with any questions. (2) HTN (hypertension): Qualifiers: Hypertension type: primary hypertension Qualified Code(s): I10 - Essential (primary) hypertension Code(s): I10 - Essential (primary) hypertension Status: Acute Assessment and Plan: At goal. (3) COVID-19: Code(s): U07.1 - COVID-19 Status: Acute Assessment and Plan: Management per hospitalist. History of Present Illness History of Present Illness Consult date/time: 07/10/23 15:31 Requesting physician: Jesús Zamora MD Consult reason: atrial fibrillation Reason For Visit: New onset A Fib -RVR Narrative: Mr. Brito is a 57-year-old male with a past medical history of prostate cancer and hypertension. He presents to the hospital with complaints of night sweats, body aches, malaise, and shortness of breath. Symptoms began Monday and progressed over the weekend. He has been found to be COVID positive. He was also found to be in atrial fibrillation with rapid ventricular response on arrival to the hospital. Cardiology is being asked to see him in this setting. At the time of my visit with him, he is resting comfortably in bed does not have any complaints. He denies any chest pain, shortness of breath, palpitations, swelling. Review of Systems Review of Systems: All systems reviewed & are unremarkable except as noted in HPI and below PMFSH Past Medical History Medical History Campylobacter enteritis Diverticulitis HTN (hypertension) Prostate cancer Surgical History Surgical History History of arthroplasty of both shoulders S/P hernia repair Family History Family History Mother Cancer of breast, female Cerebrovascular accident Father Prostate carcinoma Sibling Prostate carcinoma Brain aneurysm Social History Social History Social History: patient is x2 and lives by himself. Patient has 3 kids and 3 step kids that her fully grown. He denies having any pets. Patient elects his sons Juan in [place] to be his surrogate. Patient wishes to be a full code at this time. Smoking status: Never smoker Second hand tobacco smoke exposure: No Alcohol intake: former Substance use: former Substance use type: marijuana Last use: At age 25. Lack of Transportation: No Lack of Food: Never True Current Housing: I Have Housing Concerned About Future Housing: No Difficulty Paying Gas/Electric
[2023-07-10] MEDS: METOPROLOL TARTRATE 50 MG TAB PO (21:35)
[2023-07-11] VITALS (18 sets, daily range): BP systolic 110–133; BP diastolic 62–85; PULSE 76–144; RESP 16–24; TEMP 35.6–36.8; O2SAT 91–97
[2023-07-11] MEDS: HYDROcodone/acetaminophen (*CRX) 7.5-325 MG TABLET 1 TAB PO ×4 (03:15→21:57)
[2023-07-11] MEDS: METOPROLOL TARTRATE 50 MG TAB PO ×2 (09:20→21:57)
[2023-07-11 09:21] LABS: Basophils Percent Auto 0.1 % (0.2-1.2); Hematocrit 49.3 % (42.0-52.0); Hemoglobin 15.8 g/dL (14.0-18.0); Immature Granulocyte Absolute 0.03 K/mm3 (0.00-0.031); Immature Granulocyte Percent A 0.4 % (0-0.5); Lymphocytes Absolute Auto 1.89 K/mm3 (0.9-3.2); Lymphocytes Percent Auto 26.5 % (18.3-44.2); Mean Corpuscular Volume 96.9 fl (80-100); Mean Platelet Volume 11.2 fl (7.4-10.4); Monocytes Absolute Auto 0.2 K/mm3 (0.1-0.6); Monocytes Percent Auto 3.4 % (2.6-8.5); Neutrophils Percent Auto 69.6 % (45.5-73.1); Platelet Count Result 168 k/mm3 (150-375); Red Blood Count 5.09 M/mm3 (4.6-6.20); Red Cell Distribution Width 13.2 % (11.5-14.5); White Blood Count 7.1 K/mm3 (4.5-10.0)
[2023-07-11] MEDS: IBUPROFEN 600 MG TABLET PO (09:21)
[2023-07-11] MEDS: REMDESIVIR 100 MG/NS 250 ML 100 MG/250 ML BAG 250 MG IVPB (09:22)
[2023-07-11] MEDS: ENOXAPARIN 80 MG/0.8 ML SYRINGE 140 MG SUB-Q ×2 (09:22→21:57)
[2023-07-11 09:35] LABS: Alanine Aminotransferase 29 U/L (6-50); Albumin Level 3.8 g/dL (3.5-5.1); Alkaline Phosphatase 37 U/L (38-126); Anion Gap 6 mmol/L (8-16); Aspartate Amino Transferase 35 U/L (17-59); Bilirubin,Total 0.6 mg/dL (0.2-1.3); Blood Urea Nitrogen 22 mg/dL (9-20); Calcium 8.5 mg/dL (8.4-10.2); Carbon Dioxide 33 mmol/L (22-30); Chloride 100 mmol/L (98-107); Estimated CRCL calculation 104 ml/min; Estimated Glomerular Filt Rate > 60; Glucose 141 mg/dL (65-110); Potassium 4.3 mmol/L (3.4-5.0); Sodium 139 mmol/L (137-145)
[2023-07-11] MEDS: ALBUTEROL SULFATE NEB 2.5 MG/3 ML INH INHALATION ×3 (09:50→20:29)
--- NOTE | 2023-07-11 15:38 | PM.IMPN ---
Progress Note: A&P Assessment and Plan (1) Acute hypoxic respiratory failure: Code(s): J96.01 - Acute respiratory failure with hypoxia Status: Acute (2) COVID-19: Code(s): U07.1 - COVID-19 Status: Acute (3) HTN (hypertension): Qualifiers: Hypertension type: primary hypertension Qualified Code(s): I10 - Essential (primary) hypertension Code(s): I10 - Essential (primary) hypertension Status: Acute (4) Prostate cancer: Code(s): C61 - Malignant neoplasm of prostate Status: Chronic Plan 57-year-old male who presented with worsening shortness of breast generalize malaise body aches and night sweats for the past 2 days. Poor appetite. Tested positive for COVID. EKG atrial fibrillation with rapid ventricular rate. Chest x-ray with no acute cardiopulmonary disease. BNP 1447 lactate normal creatinine 1.2 WBC 6.2 history of prostate cancer and hypertension anxiety depression. CTA with no acute cardiopulmonary disease. Acute hypoxic respiratory failure needing oxygen supplementation. On Lovenox albuterol nebs. New onset AFib received full-dose anticoagulation in the ER. Start decadron and remdesivir. Sinuses remdesivir tomorrow. Continue Decadron. Off oxygen clinically improved. Lovenox full dose. Chads Vasc score 2. echo reviewed. Generalized malaise. [place] p.r.n. will add muscle relaxers. History of snoring stop Bang score 7: Apnea link test was done 07/09/2023 however patient was not to sleep. Repeat 07/10/2023: AHI 5.6 RI of 8.1 WOLFGANG 11.6 saturation less than 88% 68 minute less than 89% 125 minutes less than 90% to 103 minutes. Will qualify for home oxygen at night. Suspect sleep apnea needs sleep study as an outpatient basis. AFib with RVR improved on metoprolol 50 mg b.i.d.. Cardiology has been consulted appreciate their recommendations. Suggest aspirin 325 mg daily for long-term stroke prophylaxis. DVT prophylaxis on Lovenox currently Subjective Date/time seen: 07/11/23 15:38 Interval history: 57-year-old male who presented with worsening shortness of breast generalize malaise body aches and night sweats for the past 2 days. Poor appetite. Tested positive for COVID. EKG atrial fibrillation with rapid ventricular rate. Chest x-ray with no acute cardiopulmonary disease. BNP 1447 lactate normal creatinine 1.2 WBC 6.2 history of prostate cancer and hypertension anxiety depression. CTA with no acute cardiopulmonary disease. Acute hypoxic respiratory failure needing oxygen supplementation. On Lovenox albuterol nebs. New onset AFib received full-dose anticoagulation in the ER. Start decadron and remdesivir 07/10/2023: AFib with RVR still persist. Breathing is okay. He was not sleeping while did the sleep apnea testing. But hypoxia was noted 07/11/2023: Feels a bit better. Muscle soreness has improved. AFib rate has improved. Remains on AFib though. Apnea link study was reviewed with the patient. Needs oxygen at discharge needs sleep study as an outpatient basis Review of Systems Review of Systems: All systems reviewed & are unremarkable except as noted in HPI and below Exam Narrative: GENERAL: The patient is well developed, not in acute distress HEENT: Nonicteric sclerae, PERRLA, EOMI. Oropharynx clear. Moist mucous membranes. Conjunctivae appear well perfused. CHEST: Chest wall is nontender. HEART: AFib rhythm mild RVR without murmur, rubs, or gallops LUNGS: Clear to auscultation bilaterally. no respiratory distress ABDOMEN: Soft, positive bowel sounds, non-tender, no organomegaly. SKIN: No rash, no excessive bruising, petechiae, or purpura. NEUROLOGIC: Cranial nerves II-XII intact, alert and oriented x 3, no gross motor deficits EXTREMITIES: no edema, cyanosis or clubbing Objective Data Vital Signs Vital Signs: Vital Signs - 24 hr 07/10/23 16:00 07/10/23 16:00 07/10/23 20:35 Temperature 97.4 F L Pulse Rate 103 H 50 L 100 Respira
[2023-07-12] VITALS (24 sets, daily range): BP systolic 108–151; BP diastolic 73–99; PULSE 70–131; RESP 16–18; TEMP 36.1–36.4; O2SAT 94–98
[2023-07-12] MEDS: ALBUTEROL SULFATE NEB 2.5 MG/3 ML INH INHALATION ×4 (01:01→21:32)
[2023-07-12] MEDS: HYDROcodone/acetaminophen (*CRX) 7.5-325 MG TABLET 1 TAB PO ×4 (03:39→21:16)
[2023-07-12 04:46] LABS: Basophils Percent Auto 0.3 % (0.2-1.2); Hematocrit 47.2 % (42.0-52.0); Hemoglobin 15.4 g/dL (14.0-18.0); Immature Granulocyte Absolute 0.06 K/mm3 (0.00-0.031); Immature Granulocyte Percent A 0.8 % (0-0.5); Lymphocytes Absolute Auto 1.43 K/mm3 (0.9-3.2); Mean Corpuscular HGB Conc 32.6 g/dl (32-36); Mean Corpuscular Hemoglobin 31.2 pg (26-34); Mean Corpuscular Volume 95.5 fl (80-100); Mean Platelet Volume 11.2 fl (7.4-10.4); Monocytes Absolute Auto 0.6 K/mm3 (0.1-0.6); Monocytes Percent Auto 8.8 % (2.6-8.5); Neutrophils Percent Auto 70.1 % (45.5-73.1); Platelet Count Result 170 k/mm3 (150-375); Red Blood Count 4.94 M/mm3 (4.6-6.20); Red Cell Distribution Width 13.1 % (11.5-14.5); White Blood Count 7.2 K/mm3 (4.5-10.0)
[2023-07-12 05:08] LABS: Alanine Aminotransferase 36 U/L (6-50); Albumin Level 3.5 g/dL (3.5-5.1); Alkaline Phosphatase 38 U/L (38-126); Anion Gap 4 mmol/L (8-16); Aspartate Amino Transferase 35 U/L (17-59); Bilirubin,Total 0.4 mg/dL (0.2-1.3); Blood Urea Nitrogen 23 mg/dL (9-20); Calcium 8.2 mg/dL (8.4-10.2); Carbon Dioxide 30 mmol/L (22-30); Chloride 102 mmol/L (98-107); Estimated CRCL calculation 115 ml/min; Estimated Glomerular Filt Rate > 60; Glucose 100 mg/dL (65-110); Magnesium 2.1 mg/dL (1.6-2.3); Potassium 4.3 mmol/L (3.4-5.0); Prothrombin Time 13.8 Seconds (11.1-14.7); Sodium 136 mmol/L (137-145)
[2023-07-12] MEDS: METOPROLOL TARTRATE 50 MG TAB PO ×2 (09:07→21:16)
[2023-07-12] MEDS: ENOXAPARIN 80 MG/0.8 ML SYRINGE 140 MG SUB-Q ×2 (09:08→21:17)
[2023-07-12] MEDS: REMDESIVIR 100 MG/NS 250 ML 100 MG/250 ML BAG 250 MG IVPB (09:08)
--- NOTE | 2023-07-12 12:05 | HOMEO2EVAL ---
Evaluation was performed at [facility] Home Oxygen Evaluation RC: Home Oxygen (O2) Evaluation Start: 07/11/23 15:40 Freq: ONCE Status: Active Protocol: RPE Activity Type Activity Date Activity User E-sign Co-sign Detail Recorded Client Recorded Date Recorded By Document 07/12/23 11:30 DJO [id number] 07/12/23 12:05 DJO Document 07/12/23 11:35 [email or web address] [id number] 07/12/23 12:05 DJO Document 07/12/23 11:45 [email or web address] [id number] 07/12/23 12:05 DJO 07/12/23 07/12/23 07/12/23 11:30 11:35 11:45 Home O2 Evaluation [Oxygen] -Test Phase Resting Exercise Resting -Oxygen Delivery Room Air Room Air Room Air [Pulse Oximetry] -Pulse Oximetry (90-100 %) 96 95 96 [Pulse Rate] -Pulse Rate (60-100 beats/min) 79 88 80 [Charges] -Treatment Charges O2 Evaluation - Inpatient
--- NOTE | 2023-07-12 12:06 | PCRTNOTE ---
HOME O2 EVAL COMPLETE, NO DAY TIME REQUIREMENTS. [facility] O2 SET UP WITH [facility]. PHONE NUMBER [phone]
--- NOTE | 2023-07-12 18:10 | PM.IMPN ---
Progress Note: A&P Assessment and Plan (1) Acute hypoxic respiratory failure: Code(s): J96.01 - Acute respiratory failure with hypoxia Status: Acute (2) COVID-19: Code(s): U07.1 - COVID-19 Status: Acute Assessment and Plan: s/p Remdesivir (3) HTN (hypertension): Qualifiers: Hypertension type: primary hypertension Qualified Code(s): I10 - Essential (primary) hypertension Code(s): I10 - Essential (primary) hypertension Status: Acute (4) Prostate cancer: Code(s): C61 - Malignant neoplasm of prostate Status: Chronic Plan 57-year-old male who presented with worsening shortness of breast generalize malaise body aches and night sweats for the past 2 days. Poor appetite. Tested positive for COVID. EKG atrial fibrillation with rapid ventricular rate. Chest x-ray with no acute cardiopulmonary disease. BNP 1447 lactate normal creatinine 1.2 WBC 6.2 history of prostate cancer and hypertension anxiety depression. CTA with no acute cardiopulmonary disease. Acute hypoxic respiratory failure needing oxygen supplementation. On Lovenox albuterol nebs. New onset AFib received full-dose anticoagulation in the ER. Start decadron and remdesivir. Sinuses remdesivir tomorrow. Continue Decadron. Off oxygen clinically improved. Lovenox full dose. Chads Vasc score 2. echo reviewed. Generalized malaise. [place] p.r.n. will add muscle relaxers. History of snoring stop Bang score 7: Apnea link test was done 07/09/2023 however patient was not to sleep. Repeat 07/10/2023: AHI 5.6 RI of 8.1 WOLFGANG 11.6 saturation less than 88% 68 minute less than 89% 125 minutes less than 90% to 103 minutes. Will qualify for home oxygen at night. Suspect sleep apnea needs sleep study as an outpatient basis. AFib with RVR improved on metoprolol 50 mg b.i.d.. Cardiology has been consulted appreciate their recommendations. Suggest aspirin 325 mg daily for long-term stroke prophylaxis. DVT prophylaxis on Lovenox currently 07/12/2023: Will need oxygen during sleep; could not supply today. Will DC tomorrow F/u with Cardiology, Pulmonology and PCP Time Spent With Patient Time with patient: 25 - 35 minutes Subjective Date/time seen: 07/12/23 18:10 Interval history: 57-year-old male who presented with worsening shortness of breast generalize malaise body aches and night sweats for the past 2 days. Poor appetite. Tested positive for COVID. EKG atrial fibrillation with rapid ventricular rate. Chest x-ray with no acute cardiopulmonary disease. BNP 1447 lactate normal creatinine 1.2 WBC 6.2 history of prostate cancer and hypertension anxiety depression. CTA with no acute cardiopulmonary disease. Acute hypoxic respiratory failure needing oxygen supplementation. On Lovenox albuterol nebs. New onset AFib received full-dose anticoagulation in the ER. Start decadron and remdesivir 07/10/2023: AFib with RVR still persist. Breathing is okay. He was not sleeping while did the sleep apnea testing. But hypoxia was noted 07/11/2023: Feels a bit better. Muscle soreness has improved. AFib rate has improved. Remains on AFib though. Apnea link study was reviewed with the patient. Needs oxygen at discharge needs sleep study as an outpatient basis 07/12/23: Will DC tomorrow Review of Systems Review of Systems: Shortness of breath, night sweats, generalized malaise, body aches and pains, poor per orally intake, poor appetite All systems reviewed & are unremarkable except as noted in HPI and below Constitutional: Constitutional: Reports body ache(s), Reports chills, Reports fever(s), Reports malaise, Reports night sweats and Reports poor appetite Eyes: Eyes: Denies change in vision ENT: Denies dysphagia, Denies nasal congestion, Denies nasal discharge and Denies odynophagia Cardiovascular: Cardiovascular: Denies chest pain, Denies radiating jaw, neck or arm pain, Denies palpitations and Reports dyspnea Respir
[2023-07-13] VITALS (12 sets, daily range): BP systolic 96–138; BP diastolic 60–87; PULSE 78–110; RESP 16–20; TEMP 36.2–36.6; O2SAT 94–96
[2023-07-13] MEDS: HYDROcodone/acetaminophen (*CRX) 7.5-325 MG TABLET 1 TAB PO ×2 (04:04→10:41)
[2023-07-13] MEDS: ALBUTEROL SULFATE NEB 2.5 MG/3 ML INH INHALATION ×2 (09:00→13:48)
[2023-07-13] MEDS: ENOXAPARIN 80 MG/0.8 ML SYRINGE 140 MG SUB-Q (10:41)
[2023-07-13] MEDS: METOPROLOL TARTRATE 50 MG TAB PO (10:41)
--- NOTE | 2023-07-13 13:18 | PM.DS ---
DS: Admitting Diagnosis Discharge Date 07/13/23 Admitting Diagnosis COVID-19 infection New onset Atrial fibrillation DS: Discharge Diagnosis Discharge Diagnosis (1) Acute hypoxic respiratory failure: Code(s): J96.01 - Acute respiratory failure with hypoxia Status: Acute (2) COVID-19: Code(s): U07.1 - COVID-19 Status: Acute Assessment and Plan: s/p Remdesivir (3) HTN (hypertension): Qualifiers: Hypertension type: primary hypertension Qualified Code(s): I10 - Essential (primary) hypertension Code(s): I10 - Essential (primary) hypertension Status: Acute (4) Prostate cancer: Code(s): C61 - Malignant neoplasm of prostate Status: Chronic Plan 57-year-old male who presented with worsening shortness of breast generalize malaise body aches and night sweats for the past 2 days. Poor appetite. Tested positive for COVID. EKG atrial fibrillation with rapid ventricular rate. Chest x-ray with no acute cardiopulmonary disease. BNP 1447 lactate normal creatinine 1.2 WBC 6.2 history of prostate cancer and hypertension anxiety depression. CTA with no acute cardiopulmonary disease. Acute hypoxic respiratory failure needing oxygen supplementation. On Lovenox albuterol nebs. New onset AFib received full-dose anticoagulation in the ER. Start decadron and remdesivir. Sinuses remdesivir tomorrow. Continue Decadron. Off oxygen clinically improved. Lovenox full dose. Chads Vasc score 2. echo reviewed. Generalized malaise. [place] p.r.n. will add muscle relaxers. History of snoring stop Bang score 7: Apnea link test was done 07/09/2023 however patient was not to sleep. Repeat 07/10/2023: AHI 5.6 RI of 8.1 WOL[place]ANG 11.6 saturation less than 88% 68 minute less than 89% 125 minutes less than 90% to 103 minutes. Will qualify for home oxygen at night. Suspect sleep apnea needs sleep study as an outpatient basis. AFib with RVR improved on metoprolol 50 mg b.i.d.. Cardiology has been consulted appreciate their recommendations. Suggest aspirin 325 mg daily for long-term stroke prophylaxis. DVT prophylaxis on Lovenox currently 07/12/2023: Will need oxygen during sleep; could not supply today. Will DC tomorrow F/u with Cardiology, Pulmonology and PCP 07/13/23: He will be discharged with plans to f/u with Cardiology at a later date for probable cardioversion DS: Summary Hospital Course Reason for hospitalization: Myalgia COVID-19 infection Atrial fibrillation, new onset Hospital Course: This is a 57-year-old male with past medical history significant for hypertension, patient presented to emergency room at [facility] due to worsening shortness of breath generalized malaise body aches and pains night sweats for the last 2 days poor per orally intake poor appetite.? Patient tested positive for COVID, requiring supplemental oxygen by nasal cannula.? Patient was rule out for acute pulmonary embolism. Time Spent with Patient Time attestation: Total time spent providing and/or coordinating discharge services: Exam Narrative: GENERAL: The patient is well developed, not in acute distress HEENT: Nonicteric sclerae, PERRLA, EOMI. Oropharynx clear. Moist mucous membranes. Conjunctivae appear well perfused. CHEST: Chest wall is nontender. HEART: AFib rhythm mild RVR without murmur, rubs, or gallops LUNGS: Clear to auscultation bilaterally. no respiratory distress ABDOMEN: Soft, positive bowel sounds, non-tender, no organomegaly. SKIN: No rash, no excessive bruising, petechiae, or purpura. NEUROLOGIC: Cranial nerves II-XII intact, alert and oriented x 3, no gross motor deficits EXTREMITIES: no edema, cyanosis or clubbing Const: General: comfortable, no acute distress, well developed, alert, awake, ill appearing, average body habitus and overweight Nutritional Appearance: average body habitus and overweight Orientation/consciousness: patient oriented x3 Other: oxygen by [place] on HENMT:
== END 2023-07-13 15:07 | disposition home or self-care (01) | DRG 137 ==
PROVIDERS: Internal Medicine; Admitting Provider Internal Medicine; PCP Family Medicine; Visit Provider Internal Medicine
DX: U07.1 COVID-19 (principal); J96.01 Acute respiratory failure with hypoxia; I10 Essential (primary) hypertension; I48.91 Unspecified atrial fibrillation; Z96.612 Presence of left artificial shoulder joint; Z96.611 Presence of right artificial shoulder joint; Z85.46 Personal history of malignant neoplasm of prostate
CPT/HCPCS: 36415; 80048; 80053; 80076; 82248; 82550; 82728; 83605; 83735; 84145; 84439; 84443; 85025; 85055; 85610; 86140; 93306; 94618; 94640; 94762; A9270; J0248; J1100; J1170; J1650